=== PATIENT | female | born 1930 | race Caucasian/White ===

== ENCOUNTER 2016-11-20 03:10 | Inpatient (IN) | payer OTHER, MEDICARE ==
[2016-11-20] VITALS (13 sets, daily range): BP systolic 116–165; BP diastolic 62–89; PULSE 59–71; RESP 16–18; TEMP 97.4–98.6; O2SAT 93–99
[2016-11-20] MEDS ORDERED: LEVO75TA3 PO (03:32)
[2016-11-20] MEDS ORDERED: CLOP75TA PO (03:32)
[2016-11-20] MEDS ORDERED: LOTR5CAP (03:32)
--- NOTE | 2016-11-20 04:23 | PD ---
HPI Chief Complaint: Chest Pain Time Seen by Provider: 04:04 Travel History International Travel<30 days: No Contact w/Intl Traveler<30days: No Traveled to known affect area: No History of Present Illness HPI 86-year-old female complains of chest pain. Patient states that the pain started about 1-1/2 hours prior coming to the emergency room. Patient states the pain is pressure across the anterior chest wall. Patient denies any pain radiation. Patient denies palpitation nausea vomiting diaphoresis. Patient denies any coughing congestion fever chills. EMS was called. Patient was given aspirin 81 mg 2 and nitroglycerin sublingually. Patient states that the chest pain resolved subsequently. Patient denies any headache. Patient denies any shortness of breath. Patient denies abdominal pain. Patient denies any focal weakness or numbness of extremity. Patient denies any chest pain now. Patient has history hypertension. Patient denies history diabetes or hyperlipidemia. Patient is a nonsmoker. Patient has family history of heart disease. Patient states that she has been doing a lot of heavy lifting recently. Patient has history of peripheral vascular disease with stent placement on the left leg. Patient was on Plavix until about 3 weeks ago when she stopped taking them secondary to skin bruising. PFSH Past Medical History Diminished Hearing: No Hypertension: Yes Thyroid Disease: Yes Past Surgical History Cholecystectomy: Yes Other Surgery: Yes (STENT IN L LEG) Social History Alcohol Use: No (OCCASIONALLY ) Tobacco Use: No Substance Use: No Allergies-Medications (Allergen,Severity, Reaction): Coded Allergies: No Known Allergies (Unverified , 11/20/16) Reported Meds & Prescriptions Reported Meds & Active Scripts Active Reported Lotrel 5-40 mg Capsule (Amlodipine Besylate/Benazepril) 1 Each Capsule Levothyroxine (Levothyroxine Sodium) 75 Mcg Tab 75 Mcg PO DAILY Clopidogrel (Clopidogrel Bisulfate) 75 Mg Tab 75 Mg PO DAILY Review of Systems General / Constitutional: No: Fever Eyes: No: Visual changes HENT: No: Headaches Cardiovascular: Positive: Chest Pain or Discomfort Respiratory: No: Shortness of Breath Gastrointestinal: No: Abdominal Pain Genitourinary: No: Dysuria Musculoskeletal: No: Pain Skin: No Rash Neurologic: No: Weakness Psychiatric: No: Depression Endocrine: No: Polydipsia Hematologic/Lymphatic: No: Easy Bruising Physical Exam Narrative GENERAL: Well-nourished, well-developed patient. SKIN: Focused skin assessment warm/dry. HEAD: Normocephalic. EYES: No scleral icterus. No injection or drainage. NECK: Supple, trachea midline. No JVD or lymphadenopathy. CARDIOVASCULAR: Regular rate and rhythm without murmurs, gallops, or rubs. RESPIRATORY: Breath sounds equal bilaterally. No accessory muscle use. GASTROINTESTINAL: Abdomen soft, non-tender, nondistended. MUSCULOSKELETAL: No cyanosis, or edema. BACK: Nontender without obvious deformity. No CVA tenderness. Neurologic exam normal. Data Data Last Documented VS Vital Signs Date Time Temp Pulse Resp B/P (MAP) Pulse Ox O2 Delivery O2 Flow Rate FiO2 11/20/16 04:18 18 98 11/20/16 03:28 72 11/20/16 03:23 97.7 165/82 (109) Orders Orders Electrocardiogram (11/20/16 04:15) Complete Blood Count With Diff (11/20/16 04:15) Comprehensive Metabolic Panel (11/20/16 04:15) Creatine Kinase (Cpk) (11/20/16 04:15) Troponin I (11/20/16 04:15) Prothrombin Time / Inr (Pt) (11/20/16 04:15) Act Partial Throm Time (Ptt) (11/20/16 04:15) Urinalysis - C+S If Indicated (11/20/16 04:15) Chest, Single Ap (11/20/16 04:15) Iv Access Insert/Monitor (11/20/16 04:15) Ecg Monitoring (11/20/16 04:15) Oximetry (11/20/16 04:15) Nitroglycerin 2% Oint (Nitroglycerin 2% (11/20/16 04:30) Heparin Infusion DANN.Q1H (11/20/16 05:37) Heparin-D5w 25,000 U/250 Ml (Heparin-D5w (11/20/16 05:37) Cbc No Diff, Includes Plts (11/23/16 06:00) Consult Cardiology (11/20/16 ) Labs Laboratory Tests Test 11/20/16 04:25 11/20/16 04:40 White Blood Count 8.1 TH/MM3 Red Blood Count 4.26 MIL/MM3 Hemoglobin 14.1 GM/DL Hematocrit 41.1 % Mean Corpuscular Volume 96.6 FL Mean Corpuscular Hemoglobin 33.1 PG Mean Corpuscular Hemoglobin Concent 34.3 % Red Cell Distribution Width 13.0 % Platelet Count 213 TH/MM3 Mean Platelet Volume 8.2 FL Neutrophils (%) (Auto) 49.3 % Lymphocytes (%) (Auto) 32.0 % Monocytes (%) (Auto) 10.0 % Eosinophils (%) (Auto) 7.6 % Basophils (%) (Auto) 1.1 % Neutrophils # (Auto) 4.0 TH/MM3 Lymphocytes # (Auto) 2.6 TH/MM3 Monocytes # (Auto) 0.8 TH/MM3 Eosinophils # (Auto) 0.6 TH/MM3 Basophils # (Auto) 0.1 TH/MM3 CBC Comment DIFF FINAL Differential Comment Prothrombin Time 10.4 SEC Prothromb Time International Ratio 0.9 RATIO Activated Partial Thromboplast Time 27.0 SEC Blood Urea Nitrogen 12 MG/DL Creatinine 0.67 MG/DL Random Glucose 112 MG/DL Total Protein 7.1 GM/DL Albumin 3.4 GM/DL Calcium Level 8.3 MG/DL Alkaline Phosphatase 68 U/L Aspartate Amino Transf (AST/SGOT) 21 U/L Alanine Aminotransferase (ALT/SGPT) 25 U/L Total Bilirubin 0.8 MG/DL Sodium Level 142 MEQ/L Potassium Level 3.2 MEQ/L Chloride Level 105 MEQ/L Carbon Dioxide Level 26.9 MEQ/L Anion Gap 10 MEQ/L Estimat Glomerular Filtration Rate 84 ML/MIN Total Creatine Kinase 72 U/L Troponin I 0.16 NG/ML Urine Color LIGHT-YELLOW Urine Turbidity CLEAR Urine pH 7.5 Urine Specific [place] 1.005 Urine Protein NEG mg/dL Urine Glucose (UA) NEG mg/dL Urine Ketones NEG mg/dL Urine Occult Blood NEG Urine Nitrite NEG Urine Bilirubin NEG Urine Urobilinogen LESS THAN 2.0 MG/DL Urine Leukocyte Esterase TRACE Urine RBC LESS THAN 1 /hpf Urine WBC 1 /hpf Microscopic Urinalysis Comment CULT NOT INDICATED MDM Medical Decision Making Medical Screen Exam Complete: Yes Emergency Medical Condition: Yes Interpretation(s) EKG shows sinus rhythm with left bundle-branch block. 5:27 AM. Last Impressions Chest X-Ray 11/20/16 0415 Signed Impressions: Service Date/Time: Sunday, November 20, 2016 04:27 - CONCLUSION: Normal examination. Rey Salinas MD CBC within normal limit. Potassium 3.2. Troponin 0.16. UA is negative. Differential Diagnosis Differential diagnosis including angina, MA, PE, pneumothorax. Narrative Course 86-year-old female with chest pain. Chest pain relieved with aspirin and nitroglycerin. Nitro paste 1 inch on chest wall. I spoke with Dr. Mijares, cardiology on-call. Advise heparin drip. KCl 40 mEq by mouth given. Diagnosis Primary Impression: Non-STEMI (non-ST elevated myocardial infarction) Additional Impression: Hypokalemia Admitting Information Admitting Physician Requests: Admit Luigi Collins MD Nov 20, 2016 04:23
[2016-11-20] MEDS ORDERED: NITROGLYCERIN 2% OINT 1 GM PACKET TOPICAL ONE (04:30)
[2016-11-20 04:39] LABS: BASOPHIL # 0.1 TH/MM3 (0-0.2); BASOPHIL % 1.1 % (0.0-2.0); EOSINOPHIL # 0.6 TH/MM3 (0-0.4); EOSINOPHIL % 7.6 % (0.0-4.0); HEMATOCRIT 41.1 % (35.0-46.0); HEMO FLAGS DIFF FINAL; LYMPHOCYTE # 2.6 TH/MM3 (1.0-4.8); MEAN CELL VOLUME 96.6 FL (80.0-100.0); MEAN CORPUSCULAR HEMOGLOBIN 33.1 PG (27.0-34.0); MEAN CORPUSCULAR HGB CONC 34.3 % (32.0-36.0); NEUT % 49.3 % (16.0-70.0); PLATELET COUNT 213 TH/MM3 (150-450); RED BLOOD COUNT 4.26 MIL/MM3 (4.00-5.30); WHITE BLOOD COUNT 8.1 TH/MM3 (4.0-11.0)
--- NOTE | 2016-11-20 04:45 | RADRPT ---
EXAM DATE/TIME: 11/20/2016 04:27 [facility] COMPARISON: No previous studies available for comparison. INDICATIONS : Chest pain. MEDICAL HISTORY : Hyperthyroidism. Hypertension SURGICAL HISTORY : Cholecystectomy. ENCOUNTER: Initial ACUITY: 1 day PAIN SCORE: 5/10 LOCATION: Bilateral chest FINDINGS: A single view of the chest demonstrates the lungs to be symmetrically aerated without evidence of mas s, infiltrate or effusion. The cardiomediastinal contours are unremarkable. Osseous structures are intact. CONCLUSION: Normal examination. Rey Salinas MD on November 20, 2016 at 4:44 Board Certified Radiologist. This report was verified electronically.
[2016-11-20 04:59] LABS: ALT (GPT) 25 U/L (10-53); ANION GAP 10 MEQ/L (5-15); AST (GOT) 21 U/L (15-37); BICARBONATE 26.9 MEQ/L (21.0-32.0); BLOOD UREA NITROGEN 12 MG/DL (7-18); CHLORIDE 105 MEQ/L (98-107); GLOMERULAR FILTRATION RATE 84 ML/MIN (>89); INTERNATIONAL NORMALIZED RATIO 0.9 RATIO; POTASSIUM 3.2 MEQ/L (3.5-5.1); PROTHROMBIN TIME - PATIENT 10.4 SEC (9.8-11.6); SODIUM (NA) 142 MEQ/L (136-145)
[2016-11-20 05:03] LABS: ALKALINE PHOSPHATASE 68 U/L (45-117); TOTAL BILIRUBIN ADULT 0.8 MG/DL (0.2-1.0)
[2016-11-20 05:08] LABS: BLOOD, URINE NEG (NEG); COMMENT (UR) CULT NOT INDICATED; CULTURE IF INDICATED CULT NOT INDICATED; GLUCOSE,URINE NEG (NEG); KETONE, URINE NEG (NEG); NITRITE,URINE NEG (NEG); PH, URINE 7.5 (5.0-8.5); URINE COLOR LIGHT-YELLOW (YELLW/STRAW)
[2016-11-20 05:14] LABS: CREATINE KINASE 72 U/L (26-192)
[2016-11-20] MEDS ORDERED: ACETAMINOPHEN 325 MG TAB PO PRN (05:45)
[2016-11-20] MEDS ORDERED: LACTULOSE SYRUP 20 GM/30 ML CUP PO PRN (05:45)
[2016-11-20] MEDS ORDERED: NITROGLYCERIN 2% OINT 1 GM PACKET TOPICAL PRN (05:45)
[2016-11-20] MEDS ORDERED: MAGNESIUM HYDROXIDE SUSP 30 ML CUP PO PRN (05:45)
[2016-11-20] MEDS ORDERED: SENNOSIDES 8.6 MG TAB PO PRN (05:45)
[2016-11-20] MEDS ORDERED: SODIUM CHLORIDE 0.9% FLUSH 10 ML FLUSH IV FLUSH PRN (05:45)
[2016-11-20] MEDS ORDERED: BISACODYL 10 MG SUPP RECTAL PRN (05:45)
[2016-11-20] MEDS ORDERED: ONDANSETRON HCL 4 MG/2 ML VIAL IVP PRN (05:45)
[2016-11-20] MEDS ORDERED: POTASSIUM CHLORIDE 20 MEQ CONTROLLED RELEASE TAB PO ONE (05:45)
[2016-11-20] MEDS: SODIUM CHLOR 0.9% 1000 ML INJ 1,000 ML IV SCH ×2 (06:28→15:40)
[2016-11-20] MEDS: HEPARIN-D5W 25,000 U/250 ML 250 ML IV PRN (06:34)
[2016-11-20] MEDS: PRAVASTATIN SOD 40 MG TAB PO SCH (09:16)
[2016-11-20] MEDS: DOCUSATE SODIUM 50 MG/SENNA 8.6 MG TAB PO SCH ×2 (09:16→20:01)
[2016-11-20] MEDS: METOPROLOL TARTRATE 25 MG TAB PO SCH ×2 (09:16→20:01)
[2016-11-20] MEDS: SODIUM CHLORIDE 0.9% FLUSH 10 ML FLUSH IV FLUSH SCH ×2 (09:17→20:01)
--- NOTE | 2016-11-20 10:14 | HHI.HP ---
HPI Service [facility] Primary Care Physician Susan Harrell MD Admission Diagnosis NSTEMI. Hypokalemia. Diagnoses: Chief Complaint: chest pain Travel History International Travel<30 Days: No Contact w/Intl Traveler <30 Da: No Traveled to Known Affected Are: No History of Present Illness Written by Joy Harris, acting as scribe for Dr. Arias on 11/20/16 at 09: 50. 86-year-old female with history of hypertension, hypothyroidism, PAD s/p left leg stent, presents with acute onset of chest pain just prior to arrival. The patient reports around 2 AM this morning 11/20, she woke up to use the restroom, walked to the bathroom, and states she "just knew something was wrong". She laid back down in bed, and after about twenty minutes she developed chest pains. She locates the pain diffusely across the anterior chest without radiation, described as constant pressure, associated with shortness of breath but no diaphoresis or nausea/vomiting. She did not take anything for the pain. The chest pain failed to subside over an hour therefore she called 911. En route to the ED, EMS administered two baby aspirin and one nitroglycerin, and her chest pains subsided then resolved shortly after her arrival to the ED. The patient states she's had these chest pains a few times in the past but never this bad. She would usually take 2 aspirin, go to bed, and the pains would resolve. She denies any prior history of ID. She had an arterial stent placed in the left leg approximately [address] Higgins. She has been taking Plavix however had some dental work done 3 weeks ago, stopped her plavix, and hasn't restarted secondary to bruising. She admits she has been under more stress lately; her and her 90-year-old have been moving this week. She reports a strong family history of heart disease with both parents. The patient has no other medical complaints including no fevers/chills, cough, palpitations , abdominal pain, or urinary complaints. Review of Systems Except as stated in HPI: all other systems reviewed are Neg Past Family Social History Past Medical History Hypertension PAD Hypothyroidism Past Surgical History Cholecystectomy Left leg stent placement Hysterectomy Dental procedures Reported Medications Lotrel 5-40 mg Capsule (Amlodipine Besylate/Benazepril) 1 Each Capsule Levothyroxine (Levothyroxine Sodium) 75 Mcg Tab 75 Mcg PO DAILY Clopidogrel (Clopidogrel Bisulfate) 75 Mg Tab 75 Mg PO DAILY (stopped taking 3 weeks ago) Allergies: Coded Allergies: No Known Allergies (Unverified , 11/20/16) Active Ordered Medications Current Medications Medications (Trade) Dose Ordered Sig/Casa Route Start Time Stop Time Status Last Admin Heparin Sodium/ Dextrose 250 ml @ 0 mls/hr Q0M PRN IV 11/20/16 05:37 11/20/16 06:34 Sodium Chloride 1,000 ml @ 100 mls/hr Q10H IV 11/20/16 05:40 11/20/16 06:28 (NS Flush) 2 ml UNSCH PRN IV FLUSH 11/20/16 05:45 (NS Flush) 2 ml BID IV FLUSH 11/20/16 09:00 11/20/16 09:17 (Zofran Inj) 4 mg Q6H PRN IVP 11/20/16 05:45 (Tylenol) 650 mg Q6H PRN PO 11/20/16 05:45 ([place] 5-325 Mg) 1 tab Q4H PRN PO 11/20/16 05:45 (Morphine Inj) 2 mg Q3H PRN IV 11/20/16 05:45 (Meri-Colace) 1 tab BID PO 11/20/16 09:00 11/20/16 09:16 (Milk Of Magnesia Liq) 30 ml Q12H PRN PO 11/20/16 05:45 (Senokot) 17.2 mg Q12H PRN PO 11/20/16 05:45 (Dulcolax Supp) 10 mg DAILY PRN RECTAL 11/20/16 05:45 (Lactulose Liq) 30 ml DAILY PRN PO 11/20/16 05:45 (Nitroglycerin 2% Oint) 0.5 inch Q6H PRN TOPICAL 11/20/16 05:45 (Lopressor) 25 mg Q12HR PO 11/20/16 09:00 11/20/16 09:16 (Pravachol) 40 mg DAILY PO 11/20/16 09:00 11/20/16 09:16 Family History Mother with "a lot of heart problems", Father with heart disease, from ID Social History Quit smoking tobacco 30+ years ago Drinks 1 glass of wine nightly No illicit drug use Physical Exam Vital Signs Vital Signs Date Time Temp Pulse Resp B/P (MAP) Pulse Ox O2 Delivery O2 Flow Rate FiO2 11/20/16 07:10 11/20/16 06:00 67 18 127/71 (89) 97 11/20/16 04:18 18 98 11/20/16 03:28 72 18 99 11/20/16 03:23 97.7 68 16 165/82 (109) 99 Physical Exam GENERAL: Well-nourished, well-developed pleasant elderly female patient in [facility]. SKIN: Warm and dry. No rash. HEAD: Normocephalic. Atraumatic. EYES: Pupils equal and round. No scleral icterus. No injection or drainage. ENT: No nasal bleeding or discharge. Mucous membranes pink and moist. NECK: Supple. Trachea midline. CARDIOVASCULAR: Regular rate and rhythm. S1, S2 noted. No murmur appreciated. RESPIRATORY: No accessory muscle use. Clear to auscultation. Breath sounds equal bilaterally. GASTROINTESTINAL: Abdomen soft, non-tender, nondistended. Normoactive bowel sounds x4. MUSCULOSKELETAL: No obvious deformities. Extremities without clubbing, cyanosis , or edema. NEUROLOGICAL: Awake and alert. No obvious cranial nerve deficits. Motor grossly within normal limits. Moves all extremities spontaneously. Normal speech. PSYCHIATRIC: Appropriate mood and affect; insight and judgment normal. Laboratory Laboratory Tests Test 11/20/16 04:25 11/20/16 04:40 White Blood Count 8.1 Red Blood Count 4.26 Hemoglobin 14.1 Hematocrit 41.1 Mean Corpuscular Volume 96.6 Mean Corpuscular Hemoglobin 33.1 Mean Corpuscular Hemoglobin Concent 34.3 Red Cell Distribution Width 13.0 Platelet Count 213 Mean Platelet Volume 8.2 Neutrophils (%) (Auto) 49.3 Lymphocytes (%) (Auto) 32.0 Monocytes (%) (Auto) 10.0 Eosinophils (%) (Auto) 7.6 Basophils (%) (Auto) 1.1 Neutrophils # (Auto) 4.0 Lymphocytes # (Auto) 2.6 Monocytes # (Auto) 0.8 Eosinophils # (Auto) 0.6 Basophils # (Auto) 0.1 CBC Comment DIFF FINAL Differential Comment Prothrombin Time 10.4 Prothromb Time International Ratio 0.9 Activated Partial Thromboplast Time 27.0 Blood Urea Nitrogen 12 Creatinine 0.67 Random Glucose 112 Total Protein 7.1 Albumin 3.4 Calcium Level 8.3 Alkaline Phosphatase 68 Aspartate Amino Transf (AST/SGOT) 21 Alanine Aminotransferase (ALT/SGPT) 25 Total Bilirubin 0.8 Sodium Level 142 Potassium Level 3.2 Chloride Level 105 Carbon Dioxide Level 26.9 Anion Gap 10 Estimat Glomerular Filtration Rate 84 Total Creatine Kinase 72 Troponin I 0.16 Urine Color LIGHT-YELLOW Urine Turbidity CLEAR Urine pH 7.5 Urine Specific [place] 1.005 Urine Protein NEG Urine Glucose (UA) NEG Urine Ketones NEG Urine Occult Blood NEG Urine Nitrite NEG Urine Bilirubin NEG Urine Urobilinogen LESS THAN 2.0 Urine Leukocyte Esterase TRACE Urine RBC LESS THAN 1 Urine WBC 1 Microscopic Urinalysis Comment CULT NOT INDICATED Result Diagram: 11/20/165 11/20/16424 Imaging Last Impressions Chest X-Ray 11/20/16414 Signed Impressions: Service Date/Time: Tuesday, November 20, 2016 04:27 - CONCLUSION: Normal examination. MD Mauricio Bob VTE Risk Assessment Caprini VTE Risk Assessment: Mod/High Risk (score >= 2) Caprini Risk Assessment Model Point Value = 1 Point Value = 2 Point Value = 3 Point Value = 5 Age 41-60 Minor surgery BMI > 25 kg/m2 Swollen legs Varicose veins or History of unexplained or recurrent spontaneous Oral contraceptives or hormone replacement Sepsis (< 1 month) Serious lung disease, including pneumonia (< 1 month) Abnormal pulmonary function Acute myocardial infarction Congestive heart failure (< 1 month) History of inflammatory bowel disease Medical patient at bed rest Age 61-74 Arthroscopic surgery Major open surgery (> 45 min) Laparoscopic surgery (> 45 min) Malignancy Confined to bed (> 72 hours) Immobilizing plaster cast Central venous access Age >= 75 History of VTE Family history of VTE Factor V Leiden Prothrombin [id number] Lupus anticoagulant Anticardiolipin antibodies Elevated serum homocysteine Heparin-induced thrombocytopenia Other congenital or acquired thrombophilia Stroke (< 1 month) Elective arthroplasty Hip, pelvis, or leg fracture Acute spinal cord injury (< 1 month) Prophylaxis Regimen Total Risk Factor Score Risk Level Prophylaxis Regimen 0-1 Low Early ambulation 2 Moderate Order ONE of the following: *Sequential Compression Device (SCD) *Heparin 5000 units SQ BID 3-4 Higher Order ONE of the following medications: *Heparin 5000 units SQ TID *Enoxaparin/Lovenox 40 mg SQ daily (WT < 150 kg, CrCl > 30 mL/min) *Enoxaparin/Lovenox 30 mg SQ daily (WT < 150 kg, CrCl > 10-29 mL/min) *Enoxaparin/Lovenox 30 mg SQ BID (WT < 150 kg, CrCl > 30 mL/min) AND/OR *Sequential Compression Device (SCD) 5 or more Highest Order ONE of the following medications: *Heparin 5000 units SQ TID (Preferred with Epidurals) *Enoxaparin/Lovenox 40 mg SQ daily (WT < 150 kg, CrCl > 30 mL/min) *Enoxaparin/Lovenox 30 mg SQ daily (WT < 150 kg, CrCl > 10-29 mL/min) *Enoxaparin/Lovenox 30 mg SQ BID (WT < 150 kg, CrCl > 30 mL/min) AND *Sequential Compression Device (SCD) Assessment and Plan Problem List: (1) Non-STEMI (non-ST elevated myocardial infarction) ICD Code: I21.4 - Non-ST elevation (NSTEMI) myocardial infarction Status: Acute (2) Hypokalemia ICD Code: E87.6 - Hypokalemia Status: Acute Assessment and Plan 86-year-old female with history of hypertension, hypothyroidism, PAD s/p left leg stent, presents with acute onset of chest pain just prior to arrival. NSTEMI: Chest pain onset 2am 11/20. Initial troponin at 0425hrs 0.16. EKG reviewed, shows sinus rhythm with LBBB. Chest pains resolved after aspirin 162mg and nitro administered by EMS. CXR images reviewed, no acute findings. -Continue to trend serial cardiac enzymes and EKGs -Started on IV heparin drip, nitro paste, beta shanthi, statin, IV morphine prn -check lipid panel and HgbA1c -Monitor on telemetry -Consult cardiology Hypertension: chronic, BP elevated upon arrival likely secondary to pain -continue home meds Norvasc and benazepril (convert to lisinopril equivalent dosing) with hold parameters -monitor BP, adjust antihypertensives as needed Hypothyroidism: chronic -continue patient's levothyroxine PAD: s/p left leg stent. Patient stopped taking plavix 3 weeks ago due to bruising. Follows with Dr. Higgins, has an upcoming appt next week. -continue outpatient follow up -hold Plavix for now until cardiology evaluation Hypokalemia: K 3.3 -given KCl 40meq po x1 -repeat labs in the am DVT Prophylaxis: on Heparin drip This note was transcribed by abelardo [Joy Harris]. I, Dr. Karin Arias personally performed the history, physical exam, and medical decision making; and confirmed the accuracy of the information in the transcribed note. Authenticated by Dr. Karin Arias on 11/20/16 at 0955. Discussed Condition With Patient Physician Certification 2 Midnight Certification Type: Admission for Inpatient Services Order for Inpatient Services The services are ordered in accordance with Medicare regulations or non- Medicare payer requirements, as applicable. In the case of services not specified as inpatient-only, they are appropriately provided as inpatient services in accordance with the 2-midnight benchmark. Estimated LOS (days): 3 days is the estimated time the patient will need to remain in the hospital, assuming treatment plan goals are met and no additional complications. Post-Hospital Plan: Home Joy Harris PA-C Nov 20, 2016 10:14 Karin Arias MD Nov 20, 2016 10:48
[2016-11-20 11:10] LABS: LDL CHOLESTEROL 86 MG/DL (0-99)
--- NOTE | 2016-11-20 11:52 | PD.CONS ---
HPI Consult Requested By Primary Care Physician Susan Harrell MD History of Present Illness 86-year-old female with pmhx of hypertension, hypothyroidism, PAD s/p left leg stent, presents with acute onset of chest pain. She pain started at 2 AM. She describes it as constant pressure across the chest, associated with shortness of breath but no diaphoresis or nausea/vomiting. Pain was relieved by nitroglycerin. EKG LBBB ?new vs old. Review of Systems Consitutional: DENIES: Fatigue, Fever, Chills, Weight gain, Weight loss Eyes: DENIES: Amaurosis Fugax, Change in vision HEENT: DENIES: Lightheadedness, Change in hearing Cardiovascular: COMPLAINS OF: See HPI Gastrointestinal: DENIES: Nausea, Vomiting, Change in bowel habits, Reflux, Bloody stools, Melena Genitourinary: DENIES: Urinary incontinence, Difficulty voiding Integumentary: DENIES: Rash Neurologic: DENIES: Tingling or numbness, Memory problems, Poor Balance, Stroke symptoms Musculoskeletal: DENIES: Joint pain, Muscle pain, Limited range of motion, Back pain Psychiatric: DENIES: Anxiety, Depression, Sleep disturbances Hematologic: DENIES: Bruising tendencies, Bleeding tendencies Endocrine: DENIES: Weight gain, Weight loss, Thyroid disease Past Family Social History Allergies: Coded Allergies: No Known Allergies (Unverified , 11/20/16) Past Medical History Hypertension PAD Hypothyroidism Past Surgical History Cholecystectomy Left leg stent placement Hysterectomy Dental procedures Reported Medications Reported Meds & Active Scripts Active Reported Lotrel 5-40 mg Capsule (Amlodipine Besylate/Benazepril) 1 Each Capsule Levothyroxine (Levothyroxine Sodium) 75 Mcg Tab 75 Mcg PO DAILY Clopidogrel (Clopidogrel Bisulfate) 75 Mg Tab 75 Mg PO DAILY Active Ordered Medications Current Medications Medications (Trade) Dose Ordered Sig/Casa Route Start Time Stop Time Status Last Admin Heparin Sodium/ Dextrose 250 ml @ 0 mls/hr Q0M PRN IV 11/20/16 05:37 11/20/16 06:34 Sodium Chloride 1,000 ml @ 100 mls/hr Q10H IV 11/20/16 05:40 11/20/16 06:28 (NS Flush) 2 ml UNSCH PRN IV FLUSH 11/20/16 05:45 (NS Flush) 2 ml BID IV FLUSH 11/20/16 09:00 11/20/16 09:17 (Zofran Inj) 4 mg Q6H PRN IVP 11/20/16 05:45 (Tylenol) 650 mg Q6H PRN PO 11/20/16 05:45 ([place] 5-325 Mg) 1 tab Q4H PRN PO 11/20/16 05:45 (Morphine Inj) 2 mg Q3H PRN IV 11/20/16 05:45 (Meri-Colace) 1 tab BID PO 11/20/16 09:00 11/20/16 09:16 (Milk Of Magnesia Liq) 30 ml Q12H PRN PO 11/20/16 05:45 (Senokot) 17.2 mg Q12H PRN PO 11/20/16 05:45 (Dulcolax Supp) 10 mg DAILY PRN RECTAL 11/20/16 05:45 (Lactulose Liq) 30 ml DAILY PRN PO 11/20/16 05:45 (Nitroglycerin 2% Oint) 0.5 inch Q6H PRN TOPICAL 11/20/16 05:45 (Lopressor) 25 mg Q12HR PO 11/20/16 09:00 11/20/16 09:16 (Pravachol) 40 mg DAILY PO 11/20/16 09:00 11/20/16 09:16 (Norvasc) 5 mg DAILY PO 11/21/16 09:00 (Prinivil) 40 mg DAILY PO 11/21/16 09:00 (Synthroid) 75 mcg DAILY@0600 PO 11/21/16 06:00 Physical Exam Vital Signs Vital Signs Date Time Temp Pulse Resp B/P (MAP) Pulse Ox O2 Delivery O2 Flow Rate FiO2 11/20/16 07:26 97.5 70 18 154/89 (110) 97 11/20/16 07:10 11/20/16 06:00 67 18 127/71 (89) 97 11/20/16 04:18 18 98 11/20/16 03:28 72 18 99 11/20/16 03:23 97.7 68 16 165/82 (109) 99 Laboratory Laboratory Tests Test 11/20/16 04:25 11/20/16 04:40 White Blood Count 8.1 Red Blood Count 4.26 Hemoglobin 14.1 Hematocrit 41.1 Mean Corpuscular Volume 96.6 Mean Corpuscular Hemoglobin 33.1 Mean Corpuscular Hemoglobin Concent 34.3 Red Cell Distribution Width 13.0 Platelet Count 213 Mean Platelet Volume 8.2 Neutrophils (%) (Auto) 49.3 Lymphocytes (%) (Auto) 32.0 Monocytes (%) (Auto) 10.0 Eosinophils (%) (Auto) 7.6 Basophils (%) (Auto) 1.1 Neutrophils # (Auto) 4.0 Lymphocytes # (Auto) 2.6 Monocytes # (Auto) 0.8 Eosinophils # (Auto) 0.6 Basophils # (Auto) 0.1 CBC Comment DIFF FINAL Differential Comment Prothrombin Time 10.4 Prothromb Time International Ratio 0.9 Activated Partial Thromboplast Time 27.0 Blood Urea Nitrogen 12 Creatinine 0.67 Random Glucose 112 Total Protein 7.1 Albumin 3.4 Calcium Level 8.3 Alkaline Phosphatase 68 Aspartate Amino Transf (AST/SGOT) 21 Alanine Aminotransferase (ALT/SGPT) 25 Total Bilirubin 0.8 Sodium Level 142 Potassium Level 3.2 Chloride Level 105 Carbon Dioxide Level 26.9 Anion Gap 10 Estimat Glomerular Filtration Rate 84 Total Creatine Kinase 72 Troponin I 0.16 Triglycerides Level 94 Cholesterol Level 169 LDL Cholesterol 86 HDL Cholesterol 64.0 Cholesterol/HDL Ratio 2.64 Urine Color LIGHT-YELLOW Urine Turbidity CLEAR Urine pH 7.5 Urine Specific [place] 1.005 Urine Protein NEG Urine Glucose (UA) NEG Urine Ketones NEG Urine Occult Blood NEG Urine Nitrite NEG Urine Bilirubin NEG Urine Urobilinogen LESS THAN 2.0 Urine Leukocyte Esterase TRACE Urine RBC LESS THAN 1 Urine WBC 1 Microscopic Urinalysis Comment CULT NOT INDICATED Result Diagram: 11/20/1642411/20/16424 Imaging Last Impressions Chest X-Ray 11/20/16414 Signed Impressions: Service Date/Time: Sunday, November 20, 2016 04:27 - CONCLUSION: Normal examination. Rey Salinas MD Assessment and Plan Problem List: (1) Non-STEMI (non-ST elevated myocardial infarction) ICD Codes: I21.4 - Non-ST elevation (NSTEMI) myocardial infarction Status: Acute Plan: 86 y/o F admiited with ACS/NSTEMI. NUBIA risk score 4. [place] 0. Recommendations: 1. Cycle cardiac markers x3 2. Cont heparin drip 3. Cont ASA and Plavix 4. BB, ACEi as tolerated by BP an HR 5. Statin 6. 2Dechocardiogram 7. Possible LHC on Tuesday (2) Hypokalemia ICD Codes: E87.6 - Hypokalemia Status: Acute Mijares-Moi López MD Nov 20, 2016 11:52
[2016-11-20 12:03] LABS: APTT (PATIENT) 41.1 SEC (24.3-30.1)
[2016-11-20] MEDS: ASPIRIN EC 81 MG TABEC PO SCH (12:20)
[2016-11-20 13:28] LABS: HEMOGLOBIN A1a 0.9 %; HEMOGLOBIN A1b 0.8 %; HEMOGLOBIN Ao 85.8 %; HEMOGLOBIN F 0.9 %; HEMOGLOBIN P3 3.5 %
--- NOTE | 2016-11-20 15:50 | EKG ---
Date Performed: 11/20/2016 Time Performed: 03:13:22 PTAGE: 86 years EKG: Sinus rhythm LEFT BUNDLE BRANCH BLOCK ABNORMAL ECG NO PREVIOUS TRACING DOCTOR: Salima Benton Interpretating Date/Time 11/20/2016 15:49:05
[2016-11-20 18:48] LABS: APTT (PATIENT) 38.2 SEC (24.3-30.1)
[2016-11-21] VITALS (27 sets, daily range): BP systolic 115–144; BP diastolic 66–84; PULSE 52–77; RESP 16–18; TEMP 97.5–98.6; O2SAT 93–99
[2016-11-21 01:12] LABS: APTT (PATIENT) 50.2 SEC (24.3-30.1)
[2016-11-21] MEDS: SODIUM CHLOR 0.9% 1000 ML INJ 1,000 ML IV SCH ×3 (03:45→15:05)
[2016-11-21] MEDS: LEVOTHYROXINE SODIUM 75 MCG TAB PO SCH (05:36)
[2016-11-21 07:34] LABS: BASOPHIL # 0.1 TH/MM3 (0-0.2); BASOPHIL % 0.7 % (0.0-2.0); EOSINOPHIL # 0.4 TH/MM3 (0-0.4); EOSINOPHIL % 3.6 % (0.0-4.0); HEMATOCRIT 39.9 % (35.0-46.0); HEMO FLAGS DIFF FINAL; LYMPH % 25.3 % (9.0-44.0); LYMPHOCYTE # 2.9 TH/MM3 (1.0-4.8); MEAN CORPUSCULAR HGB CONC 34.1 % (32.0-36.0); NEUT % 61.4 % (16.0-70.0); PLATELET COUNT 195 TH/MM3 (150-450); RED BLOOD COUNT 4.12 MIL/MM3 (4.00-5.30); RED CELL DISTRIBUTION WIDTH 12.8 % (11.6-17.2); WHITE BLOOD COUNT 11.5 TH/MM3 (4.0-11.0)
[2016-11-21 07:48] LABS: ALT (GPT) 22 U/L (10-53); ANION GAP 10 MEQ/L (5-15); AST (GOT) 23 U/L (15-37); BICARBONATE 22.4 MEQ/L (21.0-32.0); BLOOD UREA NITROGEN 8 MG/DL (7-18); CHLORIDE 111 MEQ/L (98-107); GLOMERULAR FILTRATION RATE 91 ML/MIN (>89); POTASSIUM 3.4 MEQ/L (3.5-5.1); SODIUM (NA) 143 MEQ/L (136-145)
[2016-11-21 07:50] LABS: ALKALINE PHOSPHATASE 57 U/L (45-117); TOTAL BILIRUBIN ADULT 0.6 MG/DL (0.2-1.0)
[2016-11-21] MEDS: amLODIPine BESYLATE 5 MG TAB PO SCH (08:42)
[2016-11-21] MEDS: DOCUSATE SODIUM 50 MG/SENNA 8.6 MG TAB PO SCH ×2 (08:42→20:42)
[2016-11-21] MEDS: ASPIRIN EC 81 MG TABEC PO SCH (08:42)
[2016-11-21] MEDS: PRAVASTATIN SOD 40 MG TAB PO SCH (08:42)
[2016-11-21] MEDS: METOPROLOL TARTRATE 25 MG TAB PO SCH ×2 (08:42→20:42)
[2016-11-21] MEDS: LISINOPRIL 20 MG TAB PO SCH (08:43)
[2016-11-21] MEDS: SODIUM CHLORIDE 0.9% FLUSH 10 ML FLUSH IV FLUSH SCH ×2 (08:43→20:43)
[2016-11-21] MEDS ORDERED: POTASSIUM CHLORIDE 20 MEQ CONTROLLED RELEASE TAB PO ONE (08:45)
--- NOTE | 2016-11-21 09:33 | HHI.PR ---
Subjective Remarks Follow up for chest pain. The patient reports no further episodes of chest pain. She denies any shortness of breath, nausea/vomiting, abdominal pain, or diaphoresis. She feels back to her baseline. She has no other medical complaints at this time. Objective Vitals Vital Signs Date Time Temp Pulse Resp B/P (MAP) Pulse Ox O2 Delivery O2 Flow Rate FiO2 11/21/16 09:24 77 11/21/16 08:47 71 11/21/16 07:44 62 11/21/16 07:41 97.7 62 18 115/66 (82) 97 11/21/16 06:00 70 11/21/16 05:00 73 11/21/16 04:00 63 11/21/16 03:30 98.6 65 16 143/84 (103) 93 11/21/16 03:00 60 11/21/16 02:00 73 11/21/16 01:00 65 11/21/16 00:00 58 11/20/16 23:30 98.4 59 16 116/62 (80) 95 11/20/16 23:00 59 11/20/16 22:00 64 11/20/16 21:00 66 11/20/16 20:00 64 11/20/16 19:40 98.6 62 16 144/80 (101) 93 11/20/16 19:00 66 11/20/16 15:36 97.4 71 18 142/88 (106) 94 11/20/16 11:53 97.5 59 18 138/75 (96) 95 I/O 11/20/16 11/20/16 11/20/16 11/21/16 11/21/16 11/21/16 07:00 15:00 23:00 07:00 15:00 23:00 Intake Total 480 ml 1560 ml Output Total 1400 ml 650 ml Balance -920 ml 910 ml Intake Oral 480 ml 480 ml IV Total 1080 ml Output Urine Total 1400 ml 650 ml # Voids 1 # Bowel Movements 0 1 Result Diagram: 11/21/16 0635 11/21/16 0635 Imaging Last Impressions Chest X-Ray 11/20/16 0415 Signed Impressions: Service Date/Time: Sunday, November 20, 2016 04:27 - CONCLUSION: Normal examination. Rey Salinas MD Objective Remarks GENERAL: Well-nourished, well-developed pleasant elderly female patient in NAD. SKIN: Warm and dry. No rash. HEENT: Normocephalic. Atraumatic. Pupils equal and round. Mucous membranes pink and moist. CARDIOVASCULAR: Regular rate and rhythm. S1, S2 noted. No murmur appreciated. RESPIRATORY: No accessory muscle use. Clear to auscultation. Breath sounds equal bilaterally. GASTROINTESTINAL: Abdomen soft, non-tender, nondistended. Normoactive bowel sounds x4. MUSCULOSKELETAL: No obvious deformities. Extremities without clubbing, cyanosis , or edema. NEUROLOGICAL: Awake and alert. No obvious cranial nerve deficits. Motor grossly within normal limits. Moves all extremities spontaneously. Normal speech. PSYCHIATRIC: Appropriate mood and affect; insight and judgment normal. Medications and IVs Current Medications Medications (Trade) Dose Ordered Sig/Casa Route Start Time Stop Time Status Last Admin Heparin Sodium/ Dextrose 250 ml @ 0 mls/hr Q0M PRN IV 11/20/16 05:37 11/20/16 06:34 Sodium Chloride 1,000 ml @ 100 mls/hr Q10H IV 11/20/16 05:40 11/21/16 03:45 (NS Flush) 2 ml UNSCH PRN IV FLUSH 11/20/16 05:45 (NS Flush) 2 ml BID IV FLUSH 11/20/16 09:00 11/21/16 08:43 (Zofran Inj) 4 mg Q6H PRN IVP 11/20/16 05:45 (Tylenol) 650 mg Q6H PRN PO 11/20/16 05:45 ([place] 5-325 Mg) 1 tab Q4H PRN PO 11/20/16 05:45 (Morphine Inj) 2 mg Q3H PRN IV 11/20/16 05:45 (Meri-Colace) 1 tab BID PO 11/20/16 09:00 11/21/16 08:42 (Milk Of Magnesia Liq) 30 ml Q12H PRN PO 11/20/16 05:45 (Senokot) 17.2 mg Q12H PRN PO 11/20/16 05:45 (Dulcolax Supp) 10 mg DAILY PRN RECTAL 11/20/16 05:45 (Lactulose Liq) 30 ml DAILY PRN PO 11/20/16 05:45 (Nitroglycerin 2% Oint) 0.5 inch Q6H PRN TOPICAL 11/20/16 05:45 (Lopressor) 25 mg Q12HR PO 11/20/16 09:00 11/21/16 08:42 (Pravachol) 40 mg DAILY PO 11/20/16 09:00 11/21/16 08:42 (Norvasc) 5 mg DAILY PO 11/21/16 09:00 11/21/16 08:42 (Prinivil) 40 mg DAILY PO 11/21/16 09:00 11/21/16 08:43 (Synthroid) 75 mcg DAILY@0600 PO 11/21/16 06:00 11/21/16 05:36 (Ecotrin Ec) 81 mg DAILY PO 11/20/16 12:00 11/21/16 08:42 A/P Problem List: (1) Non-STEMI (non-ST elevated myocardial infarction) ICD Code: I21.4 - Non-ST elevation (NSTEMI) myocardial infarction Status: Acute (2) Hypokalemia ICD Code: E87.6 - Hypokalemia Status: Acute Assessment and Plan 86-year-old female with history of hypertension, hypothyroidism, PAD s/p left leg stent, presents with acute onset of chest pain just prior to arrival. NSTEMI: Chest pain onset 2am 11/20. Initial troponin at 0425hrs 0.16. EKG reviewed, shows sinus rhythm with LBBB. Chest pains resolved after aspirin 162mg and nitro administered by EMS. CXR images reviewed, no acute findings. -Trended serial cardiac enzymes 0.16 --> 1.91 --> 1.62, EKG with LBBB (no previous EKG to compare) -Continue on IV heparin drip, nitro paste, beta shanthi, statin, IV morphine prn -Lipid panel wnl and HgbA1c 5.6 -Monitor on telemetry -Consult cardiology, echocardiogram ordered, may proceed with [facility] tomorrow Hypertension: chronic, BP elevated upon arrival likely secondary to pain -continue home meds Norvasc and benazepril (convert to lisinopril equivalent dosing) with hold parameters -monitor BP, adjust antihypertensives as needed Hypothyroidism: chronic -continue patient's levothyroxine PAD: s/p left leg stent. Patient stopped taking plavix 3 weeks ago due to bruising. Follows with Dr. Higgins, has an upcoming appt next week. -continue outpatient follow up -hold Plavix for now until cardiology evaluation Hypokalemia: K 3.3 -given KCl 40meq po x1 -repeat labs with K 3.4, given additional KCl replacement -check mag DVT Prophylaxis: on Heparin drip Discharge Planning Await echocardiogram. Cardiology may proceed with [facility] tomorrow am. Await further recommendations. Joy Harris PA-C Nov 21, 2016 9:33 am
--- NOTE | 2016-11-21 12:53 | PD.CARD.PN ---
Subjective Subjective Remarks no CV complaints Objective Medications Current Medications Medications (Trade) Dose Ordered Sig/Casa Route Start Time Stop Time Status Last Admin Heparin Sodium/ Dextrose 250 ml @ 0 mls/hr Q0M PRN IV 11/20/16 05:37 11/20/16 06:34 Sodium Chloride 1,000 ml @ 100 mls/hr Q10H IV 11/20/16 05:40 11/21/16 11:40 (NS Flush) 2 ml UNSCH PRN IV FLUSH 11/20/16 05:45 (NS Flush) 2 ml BID IV FLUSH 11/20/16 09:00 11/21/16 08:43 (Zofran Inj) 4 mg Q6H PRN IVP 11/20/16 05:45 (Tylenol) 650 mg Q6H PRN PO 11/20/16 05:45 ([place] 5-325 Mg) 1 tab Q4H PRN PO 11/20/16 05:45 (Morphine Inj) 2 mg Q3H PRN IV 11/20/16 05:45 (Meri-Colace) 1 tab BID PO 11/20/16 09:00 11/21/16 08:42 (Milk Of Magnesia Liq) 30 ml Q12H PRN PO 11/20/16 05:45 (Senokot) 17.2 mg Q12H PRN PO 11/20/16 05:45 (Dulcolax Supp) 10 mg DAILY PRN RECTAL 11/20/16 05:45 (Lactulose Liq) 30 ml DAILY PRN PO 11/20/16 05:45 (Nitroglycerin 2% Oint) 0.5 inch Q6H PRN TOPICAL 11/20/16 05:45 (Lopressor) 25 mg Q12HR PO 11/20/16 09:00 11/21/16 08:42 (Pravachol) 40 mg DAILY PO 11/20/16 09:00 11/21/16 08:42 (Norvasc) 5 mg DAILY PO 11/21/16 09:00 11/21/16 08:42 (Prinivil) 40 mg DAILY PO 11/21/16 09:00 11/21/16 08:43 (Synthroid) 75 mcg DAILY@0600 PO 11/21/16 06:00 11/21/16 05:36 (Ecotrin Ec) 81 mg DAILY PO 11/20/16 12:00 11/21/16 08:42 Vital Signs / I&O Vital Signs Date Time Temp Pulse Resp B/P (MAP) Pulse Ox O2 Delivery O2 Flow Rate FiO2 11/21/16 12:08 54 11/21/16 11:53 56 11/21/16 11:53 97.8 56 18 121/68 (85) 99 11/21/16 10:38 68 11/21/16 09:24 77 11/21/16 08:47 71 11/21/16 07:44 62 11/21/16 07:41 97.7 62 18 115/66 (82) 97 11/21/16 06:00 70 11/21/16 05:00 73 11/21/16 04:00 63 11/21/16 03:30 98.6 65 16 143/84 (103) 93 11/21/16 03:00 60 11/21/16 02:00 73 11/21/16 01:00 65 11/21/16 00:00 58 11/20/16 23:30 98.4 59 16 116/62 (80) 95 11/20/16 23:00 59 11/20/16 22:00 64 11/20/16 21:00 66 11/20/16 20:00 64 11/20/16 19:40 98.6 62 16 144/80 (101) 93 11/20/16 19:00 66 11/20/16 15:36 97.4 71 18 142/88 (106) 94 I/O 11/20/16 11/20/16 11/20/16 11/21/16 11/21/16 11/21/16 07:00 15:00 23:00 07:00 15:00 23:00 Intake Total 480 ml 1560 ml Output Total 1400 ml 650 ml Balance -920 ml 910 ml Intake Oral 480 ml 480 ml IV Total 1080 ml Output Urine Total 1400 ml 650 ml # Voids 1 # Bowel Movements 0 1 Physical Exam GENERAL: Well-nourished, well-developed patient. SKIN: Warm and dry. HEAD: Normocephalic. EYES: No scleral icterus. No injection or drainage. NECK: Supple, trachea midline. No JVD or lymphadenopathy. CARDIOVASCULAR: Regular rate and rhythm without murmurs, gallops, or rubs. RESPIRATORY: Breath sounds equal bilaterally. No accessory muscle use. GASTROINTESTINAL: Abdomen soft, non-tender, nondistended. EXTREMITIES: No cyanosis, or edema. NEUROLOGICAL: Awake, alert, and oriented x 3. Non-focal. Laboratory Laboratory Tests Test 11/20/16 13:50 11/20/16 18:13 11/21/16 00:08 11/21/16 06:35 Troponin I 1.91 NG/ML 1.62 NG/ML Activated Partial Thromboplast Time 38.2 SEC 50.2 SEC White Blood Count 11.5 TH/MM3 Red Blood Count 4.12 MIL/MM3 Hemoglobin 13.6 GM/DL Hematocrit 39.9 % Mean Corpuscular Volume 97.0 FL Mean Corpuscular Hemoglobin 33.0 PG Mean Corpuscular Hemoglobin Concent 34.1 % Red Cell Distribution Width 12.8 % Platelet Count 195 TH/MM3 Mean Platelet Volume 9.3 FL Neutrophils (%) (Auto) 61.4 % Lymphocytes (%) (Auto) 25.3 % Monocytes (%) (Auto) 9.0 % Eosinophils (%) (Auto) 3.6 % Basophils (%) (Auto) 0.7 % Neutrophils # (Auto) 7.0 TH/MM3 Lymphocytes # (Auto) 2.9 TH/MM3 Monocytes # (Auto) 1.0 TH/MM3 Eosinophils # (Auto) 0.4 TH/MM3 Basophils # (Auto) 0.1 TH/MM3 CBC Comment DIFF FINAL Differential Comment Blood Urea Nitrogen 8 MG/DL Creatinine 0.62 MG/DL Random Glucose 97 MG/DL Total Protein 6.4 GM/DL Albumin 3.0 GM/DL Calcium Level 8.0 MG/DL Alkaline Phosphatase 57 U/L Aspartate Amino Transf (AST/SGOT) 23 U/L Alanine Aminotransferase (ALT/SGPT) 22 U/L Total Bilirubin 0.6 MG/DL Sodium Level 143 MEQ/L Potassium Level 3.4 MEQ/L Chloride Level 111 MEQ/L Carbon Dioxide Level 22.4 MEQ/L Anion Gap 10 MEQ/L Estimat Glomerular Filtration Rate 91 ML/MIN Magnesium Level 1.9 MG/DL Imaging Last Impressions Chest X-Ray 11/20/16 8658 Signed Impressions: Service Date/Time: Sunday, November 20, 2016 04:27 - CONCLUSION: Normal examination. Rey Salinas MD Assessment and Plan Problem List: (1) Non-STEMI (non-ST elevated myocardial infarction) ICD Codes: I21.4 - Non-ST elevation (NSTEMI) myocardial infarction Status: Acute Plan: Cont aggressive management for CAD LHC in AM Keep NPO aftermidnight Risk benefits of LHC +/- PCI including but not limited to neurovascular trauma, bleeding, CHARLETTE, CVA, emergent CABG and have been discuss with patient. She understand risk and is willing to proceed. (2) Hypokalemia ICD Codes: E87.6 - Hypokalemia Status: Acute Moi Rogers MD Nov 21, 2016 12:53
[2016-11-21 13:05] LABS: APTT (PATIENT) 60.6 SEC (24.3-30.1)
--- NOTE | 2016-11-21 15:07 | ECHRPT ---
Indication: CORONARY ATHEROSCLEROSIS CONCLUSIONS The left ventricular systolic function is severely reduced with an estimated ejection fraction in th e range of 30-35%. Apical hypokinesis Normal left ventricular size. Wall thickness is normal. Nonobstructive prominent basal hypertrophy is present consistent with sigmoid septum. Trace mitral valve regurgitation. Trace aortic valve regurgitation. Aortic valve sclerosis is present. There is severe tricuspid regurgitation. The estimated pulmonary arterial pressure is 51 mmHg. Trivial pulmonary valve regurgitation. BP: 115 / 66 HR: 82 Rhythm: Sinus MEASUREMENTS (Male / Female) Normal Values Technical Quality:Fair 2D ECHO LV Diastolic Diameter PLAX 3.1 cm 4.2 - 5.9 / 3.9 - 5.3 cm LV Systolic Diameter PLAX 2.4 cm IVS Diastolic Thickness 1.3 cm 0.6 - 1.0 / 0.6 - 0.9 cm LVPW Diastolic Thickness 0.9 cm 0.6 - 1.0 / 0.6 - 0.9 cm LV Relative Wall Thickness 0.7 RV Internal Dim ED PLAX 2.2 cm LVOT Diameter 1.9 cm LA Systolic Diameter LX 2.5 cm 3.0 - 4.0 / 2.7 - 3.8 cm LV Ejection Fraction MOD 4C 43.0 % LV Cardiac Index MOD 4C 1802.2 cm/minm LV Ejection Fraction 4C AL 43.3 % LV Cardiac Index 4C AL 1867.4 cm/minm M-MODE Aortic Root Diameter MM 3.1 cm AV Cusp Separation MM 1.7 cm DOPPLER AV Peak Velocity 147.0 cm/s AV Peak Gradient 8.6 mmHg LVOT Peak Velocity 79.8 cm/s LVOT Peak Gradient 2.5 mmHg AV Area Cont Eq pk 1.5 cm MV Area PHT 3.3 cm Mitral E Point Velocity 88.4 cm/s Mitral A Point Velocity 129.0 cm/s Mitral E to A Ratio 0.7 LV E' Septal Velocity 4.8 cm/s Mitral E to LV E' Septal Ratio 18.5 TR Peak Velocity 319.0 cm/s TR Peak Gradient 40.7 mmHg PV Peak Velocity 82.8 cm/s PV Peak Gradient 2.7 mmHg FINDINGS LEFT VENTRICLE The left ventricular systolic function is severely reduced with an estimated ejection fraction in th e range of 30-35%. Normal left ventricular size. Wall thickness is normal. Nonobstructive prominent basal hypertrophy is present consistent with sigmoid septum. RIGHT VENTRICLE Normal right ventricular size and systolic function. LEFT ATRIUM The left atrial size is normal. RIGHT ATRIUM The right atrial size is normal. ATRIAL SEPTUM Normal atrial septal thickness without atrial level shunting by limited color doppler interrogation. AORTA The aortic root and proximal ascending aorta are normal in size on limited imaging. MITRAL VALVE Trace mitral valve regurgitation. AORTIC VALVE Trace aortic valve regurgitation. Aortic valve sclerosis is present. TRICUSPID VALVE There is severe tricuspid regurgitation. The estimated pulmonary arterial pressure is 51 mmHg. PULMONARY VALVE Trivial pulmonary valve regurgitation. VESSELS The inferior vena cava is normal in size. PERICARDIUM No pericardial effusion. Moi Rogers MD (Electronically Signed) Final Date:21 November 2016 15:07
[2016-11-21] MEDS: HEPARIN-D5W 25,000 U/250 ML 250 ML IV PRN (15:12)
[2016-11-22] VITALS (22 sets, daily range): BP systolic 90–154; BP diastolic 46–90; PULSE 46–78; RESP 12–16; TEMP 95.6–99; O2SAT 94–98
[2016-11-22] MEDS: SODIUM CHLOR 0.9% 1000 ML INJ 1,000 ML IV SCH ×4 (01:50→22:15)
[2016-11-22] MEDS: LEVOTHYROXINE SODIUM 75 MCG TAB PO SCH (05:39)
[2016-11-22 06:48] LABS: APTT (PATIENT) 64.8 SEC (24.3-30.1)
[2016-11-22] MEDS ORDERED: HEPARIN SODIUM - IV 10,000 UNITS/10 ML VIAL ONE (08:34)
[2016-11-22] MEDS ORDERED: HEPARIN-NS/PF INJ 1,000 ML ONE (08:34)
[2016-11-22] MEDS ORDERED: VERAPAMIL HCL 5 MG/2 ML VIAL ONE (08:34)
[2016-11-22] MEDS ORDERED: MIDAZOLAM HCL 2 MG/2 ML VIAL ONE ×2 (08:35→09:58)
[2016-11-22] MEDS ORDERED: NITROGLYCERIN INJ 5 ML ONE ×2 (08:35→12:17)
[2016-11-22] MEDS: LISINOPRIL 20 MG TAB PO SCH (09:00)
[2016-11-22] MEDS: ASPIRIN EC 81 MG TABEC PO SCH (09:00)
[2016-11-22] MEDS: METOPROLOL TARTRATE 25 MG TAB PO SCH (09:00)
[2016-11-22] MEDS: amLODIPine BESYLATE 5 MG TAB PO SCH (09:00)
[2016-11-22] MEDS: DOCUSATE SODIUM 50 MG/SENNA 8.6 MG TAB PO SCH ×2 (09:00→21:00)
[2016-11-22] MEDS: PRAVASTATIN SOD 40 MG TAB PO SCH (09:00)
[2016-11-22] MEDS ORDERED: MORPHINE SULFATE 8 MG/ML INJ ONE ×2 (10:15→11:22)
[2016-11-22] MEDS ORDERED: NITROGLYCERIN 400 MCG/SPRAY 4.9 GM BOTTLE SL ONE (10:18)
[2016-11-22] MEDS ORDERED: HEPARIN-D5W 25,000 U/250 ML 250 ML ONE (10:29)
[2016-11-22] MEDS ORDERED: PHENYLEPH/NS 1000 MCG/10 ML SYR ONE (10:31)
[2016-11-22] MEDS ORDERED: NOREPINEPHRINE 4 MG/4 ML AMP ONE (10:32)
[2016-11-22] MEDS ORDERED: HEPARIN-NS/PF INJ 500 ML ONE ×2 (10:47→11:10)
[2016-11-22] MEDS ORDERED: FLUMAZENIL 1 MG/10 ML VIAL ONE (11:41)
[2016-11-22] MEDS ORDERED: ATROPINE SULFATE 1 MG/10 ML SYRINGE ONE (11:41)
[2016-11-22] MEDS ORDERED: CLOPIDOGREL 300 MG TAB ONE (12:17)
[2016-11-22] MEDS ORDERED: FUROSEMIDE 40 MG/4 ML VIAL ONE (12:19)
[2016-11-22] MEDS ORDERED: TIROFIBAN INFUSION INJ 250 ML IV ONE (12:21)
[2016-11-22] MEDS ORDERED: FUROSEMIDE 40 MG/4 ML VIAL IV PUSH ONE (12:25)
--- NOTE | 2016-11-22 13:23 | MA ---
cc: LYLA TONEY DATE OF 1930 DATE OF PROCEDURE November 22, 2016 PROCEDURE PERFORMED 1. Left heart catheterization. 2. Selective right and left coronary angiography. 3. Left ventriculogram. 4. PCI/bare metal stent to left circumflex. 5. Intraaortic balloon pump insertion. INDICATION [id number] with ongoing chest pain. Patient decline CABG. PROCEDURE DESCRIPTION Consent signed. The patient was brought into the cardiac laboratory apparatus glass grinder in a fasting state. The right groin was prepped and draped in sterile fashion using 1% lidocaine for local anesthesia and a micropuncture kit. A 5-Tanzanian sheath was inserted into the right common femoral artery. Right common femoral artery angiography was performed to confirm position of the sheath. Then selective right and left coronary angiography was performed with JR-4 and JL-4 diagnostic catheters. Angiography was taken in multiple views. The JR-4 diagnostic catheter was introduced to the ventricle over a wire. This was followed by pressure recordings of left ventriculogram and on pullback. We identified severe two-vessel disease. The patient had a [employer] of the right coronary artery which is filling from the left coronary artery and it had significant calcified lesions on the left circumflex artery, type C lesions of 80 and 90%. The lesions is amenable to PCI, however high risk characteristics given heavy calcium present. The 5-Tanzanian groin sheath was exchanged for a 6-Tanzanian sheath. Heparin was given for anticoagulation. An EBU 35 wire was used to engage the left main. Then Run-Through wire was used to cross the left circumflex. The left circumflex had plenty of tortuosity and calcification, thus it was very difficult to position the wire distally. We were able to position the wire distally and then dilate the proximal right left coronary artery with a 2.5 x 12 balloon dog bone. The patient started moving on the table, moving her feet and arms and due to her movement we left position of the wire. On the next angiography there was a dissection of the mid segment of the vessel with associated ST elevations. Patient remained hemodynamically stable. IABP place thru the left groin. For this we used a micropuncture to engage the left common femoral artery. Then we introduced the intraaortic balloon sheath, an 8-Tanzanian sheath, then the intraaortic balloon was put into the descending aorta over a wire. Case discussed with CT surgery. Then the LM was engaged with AL 0.75 guide. This was followed by wiring the vessel with an over the wire balloon and the wire which was then anchored distally and then exchanged for a Whisper wire. After confirmation of through vessel with angiography through an over the wire balloon, then we were able to deploy three bare metal stents in the proximal and distal circ. In the proximal circ with a 2.75x 12mm bare metal stents in the mid-circumflex with a 2.5/12 bare metal stent on the distal circumflex, a 2.5/14 bare metal stent. There was slow reflow after the intervention for which nitroglycerin/adenosine was given intracoronary with some results. The patient was continue on heparin, started on Aggrastat and loaded with Plavix after the procedure. The patient currently remains stable with a blood pressure of 146/77 with mean of 83 and a heart rate of 88. She is alert, awake and oriented with no complaints. ANGIOGRAPHIC RESULTS LEFT VENTRICLE Left ventricular pressure was 146/17 with an LVEDP of 26. The aortic pressure was 145/63 with a mean of 93. ANGIOGRAPHIC RESULTS 1. The right coronary artery is a dominant vessel. It is calcified, has a total chronic occlusion in the mid-segment and is filling via collaterals coming from the left system. 2. The left main is long and patent, it bifurcates into the LAD and LCx 3. The LAD is a transapical vessel. It has minimal luminal irregularities, a 10 % lesion right at the takeoff of the S1 and is tortuous, filling by one diagonal which bifurcates and this diagonal has a distal lesion of about a 70%. However, this segment of the diagonal is small and not amendable to intervention. The LAD is giving off collaterals to the right coronary artery to exclude its septals. 4. The left circumflex artery is really tortuous vessel with a moderate degree of calcification. He had an 80% lesion distally. CONCLUSION 1. Successful PCI to the left circumflex artery in the setting of Non-STEMI. 2. Cardiogenic shock 3. Successful intra-aortic balloon pump insertion 4. LV systolic dysfunction. 5. Elevated LVEDP. RECOMMENDATIONS Patient will be admitted to the [facility]. The intraaortic balloon pump will continue for the next 24 hours. She will continue heparin, Integrilin and Plavix for the time being. Follow aggressive medical management for secondary prevention of coronary artery disease as tolerated. MD RANJITH Koch/SHAMA /12:31 PM /12:52 PM SAMEER
[2016-11-22] MEDS ORDERED: CLOPIDOGREL 300 MG TAB PO ONE (14:15)
[2016-11-22] MEDS ORDERED: TIROFIBAN INFUSION INJ 250 ML IV SCH (14:15)
[2016-11-22] MEDS ORDERED: ACETAMINOPHEN 1000 MG/100 ML VIAL IV PRN (14:30)
[2016-11-22 15:24] LABS: BLOOD, URINE NEG (NEG); COMMENT (UR) CATH-CULT NOT IND; CULTURE IF INDICATED CATH CULTURE NOT IND; GLUCOSE,URINE NEG (NEG); KETONE, URINE NEG (NEG); NITRITE,URINE NEG (NEG); URINE COLOR LIGHT-YELLOW (YELLW/STRAW)
--- NOTE | 2016-11-22 15:40 | EKG ---
Date Performed: 11/22/2016 Time Performed: 10:24:20 PTAGE: 86 years EKG: CONSIDER ACUTE ST ELEVATION ME Sinus bradycardia. Left bundle branch block Inferior ST elevation, CONSIDER ACUTE INFARCT Marked precordial ST depression, CONSIDER ACUTE INFARCT Anteros eptal ST-T changes suggest myocardial injury/ischemia Abnormal ECG Compared to PREVIOUS TRACING , marked ST changes consistent with an acute infarction are new. Clinica l correlation is required. PREVIOUS TRACIN11/20/2016 03.13 DOCTOR: Tyree Pillai Interpretating Date/Time 11/22/2016 15:39:55
--- NOTE | 2016-11-22 15:46 | HHI.PR ---
Subjective Remarks Patient seen after heart catheterization. She underwent PCI to the left circumflex. This was complicated by left circumflex artery dissection and she went into cardiogenic shock requiring intra-aortic balloon pump. Currently BP is maintaining. She is drowsy but easily awoken. States she has some discomfort when she moves. Otherwise no other complaints. Objective Vitals Vital Signs Date Time Temp Pulse Resp B/P (MAP) Pulse Ox O2 Delivery O2 Flow Rate FiO2 11/22/16 15:25 96.8 69 12 154/90 (111) 97 11/22/16 15:25 96/50 11/22/16 14:34 96.2 11/22/16 14:02 95.6 77 12 90/48 (62) 94 11/22/16 14:02 94/49 (159) 11/22/16 13:35 92 Nasal Cannula 10.00 11/22/16 13:35 78 11/22/16 13:03 110/60 (129) 11/22/16 13:00 95.6 11/22/16 13:00 94 Simple Mask 10.00 11/22/16 08:00 54 11/22/16 07:30 58 15 144/81 (102) 95 11/22/16 07:00 55 11/22/16 06:00 47 11/22/16 05:00 51 11/22/16 04:00 56 11/22/16 03:40 98.5 55 16 129/60 (83) 94 11/22/16 03:00 46 11/22/16 02:00 56 11/22/16 01:00 58 11/22/16 00:00 56 11/21/16 23:00 57 11/21/16 23:00 97.6 63 16 144/75 (98) 93 11/21/16 22:00 56 11/21/16 21:00 64 11/21/16 20:00 72 11/21/16 19:30 97.5 68 16 137/72 (93) 98 11/21/16 19:00 66 11/21/16 18:11 57 11/21/16 17:29 64 11/21/16 16:20 62 11/21/16 15:54 52 11/21/16 15:54 97.8 52 18 131/68 (89) 95 I/O 8/27/17 811/21/16 11/22/16 11/22/16 11/22/16 07:00 15:00 23:00 07:00 15:00 23:00 Intake Total 1560 ml 720 ml 1560 ml 100 ml Output Total 650 ml 850 ml 1100 ml Balance 910 ml -130 ml 460 ml 100 ml Intake Oral 480 ml 720 ml 480 ml IV Total 1080 ml 1080 ml 100 ml Output Urine Total 650 ml 850 ml 1100 ml # Voids 1 1 # Bowel Movements 1 1 0 Result Diagram: 11/21/16 0635 11/21/16 0635 Imaging Last Impressions Chest X-Ray 11/20/16 0415 Signed Impressions: Service Date/Time: Sunday, November 20, 2016 04:27 - CONCLUSION: Normal examination. Rey Salinas MD Objective Remarks GENERAL: Drowsy in no acute distress. SKIN: Warm and dry. No rash. HEENT: Normocephalic. Atraumatic. Pupils equal and round. Mucous membranes pink and moist. CARDIOVASCULAR: Regular rate and rhythm. S1, S2 noted. RESPIRATORY: No accessory muscle use. Clear to auscultation. Breath sounds equal bilaterally. GASTROINTESTINAL: Abdomen soft, non-tender, nondistended. Normoactive bowel sounds x4. MUSCULOSKELETAL: No obvious deformities. Extremities without clubbing, cyanosis , or edema. NEUROLOGICAL: Awake and alert. No obvious cranial nerve deficits. A/P Problem List: (1) Non-STEMI (non-ST elevated myocardial infarction) ICD Code: I21.4 - Non-ST elevation (NSTEMI) myocardial infarction Status: Acute (2) Hypokalemia ICD Code: E87.6 - Hypokalemia Status: Acute Assessment and Plan 86-year-old female with history of hypertension, hypothyroidism, PAD s/p left leg stent admitted with NSTEMI. Patient is s/p heart catheterization and PCI of left circumflex, complicated by circumflex artery dissection and cardiogenic shock NSTEMI/cardiogenic shock: status post heart catheterization and PCI of the left circumflex, currently on intraaortic balloon pump for cardiogenic shock. - Cardiology following closely. Continue support with intra-aortic balloon pump. Currently not requiring pressors. - On heparin. - Pain control - If Cardiogenic shock persist or get worse, would transfer care to [facility]. Further plan per Cardiology. Hypertension: chronic, BP elevated upon arrival likely secondary to pain -Hold antihypertensive for now 2/2 above. -monitor BP Hypothyroidism: chronic -continue patient's levothyroxine PAD: s/p left leg stent. Patient stopped taking Plavix 3 weeks ago due to bruising. Follows with Dr. Higgins, has an upcoming appt next week. -continue outpatient follow up -see above Urinary retention postop: Likely secondary to anesthesia. A costa has been placed. DVT Prophylaxis: on Heparin drip Discharge Planning Patient is critically ill. Keep in ICU. Karin Arias MD Nov 22, 2016 15:46
[2016-11-22] MEDS ORDERED: SODIUM CHLOR 0.9% 1000 ML INJ 1,000 ML IV SCH (16:53)
[2016-11-22] MEDS ORDERED: MISC INFORMATION XX ONE (17:00)
[2016-11-22] MEDS ORDERED: ATROPINE SULFATE 1 MG/ML VIAL IV PRN (17:00)
[2016-11-22] MEDS: ACETAMINOPHEN/HYDROcodone 325 MG/5 MG TAB PO PRN ×2 (17:06→23:11)
[2016-11-22] MEDS: ASPIRIN 81 MG CHEW TAB PO SCH (18:15)
[2016-11-22 19:49] LABS: AUTOMATED NEUTROPHIL # 15.8 TH/MM3 (1.8-7.7); BASOPHIL % 0.2 % (0.0-2.0); EOSINOPHIL % 0.1 % (0.0-4.0); HEMATOCRIT 40.3 % (35.0-46.0); HEMO FLAGS DIFF FINAL; LYMPH % 6.7 % (9.0-44.0); LYMPHOCYTE # 1.2 TH/MM3 (1.0-4.8); MEAN CELL VOLUME 97.7 FL (80.0-100.0); MEAN CORPUSCULAR HEMOGLOBIN 32.5 PG (27.0-34.0); MEAN CORPUSCULAR HGB CONC 33.2 % (32.0-36.0); MONO % 6.6 % (0.0-8.0); NEUT % 86.4 % (16.0-70.0); PLATELET COUNT 213 TH/MM3 (150-450); RED BLOOD COUNT 4.13 MIL/MM3 (4.00-5.30); RED CELL DISTRIBUTION WIDTH 13.4 % (11.6-17.2); WHITE BLOOD COUNT 18.2 TH/MM3 (4.0-11.0)
[2016-11-22 20:26] LABS: APTT (PATIENT) 234.1 SEC (24.3-30.1)
[2016-11-22] MEDS: ONDANSETRON HCL 4 MG/2 ML VIAL IV PRN (20:33)
--- NOTE | 2016-11-22 21:13 | PD.CONS ---
[facility] Service Critical Care Medicine Consult Requested By Primary Care Physician Susan Harrell MD History of Present Illness 86-year-old female with history of hypertension, hypothyroidism, PAD s/p left leg stent, presents with acute onset of chest pain just prior to arrival. She has been taking Plavix however had some dental work done 3 weeks ago, stopped her plavix, and hasn't restarted secondary to bruising. She admits she has been under more stress lately; her and her 90-year-old have been moving this week. She admits a strong family history of heart disease with both parents. She was taken emergently to cardiac catheterization lab where successful PCI to the left circumflex artery in the setting of Non-STEMI was done. Non-STEMI is complicated with left circumflex artery dissection and cardiogenic shock requiring the patient has been placed on IABP by centrifuge separator operator. Review of Systems Constitutional: DENIES: Diaphoretic episodes, Fatigue, Fever, Weight gain, Weight loss, Chills, Dizziness, Change in appetite, Night Sweats Endocrine: DENIES: Abnorml menstrual pattern, Heat/cold intolerance, Polydipsia , Polyuria, Polyphagia Eyes: DENIES: Blurred vision, Diplopia, Eye inflammation, Eye pain, Vision loss , Photosensitivity, Double Vision Ears, nose, mouth, throat: DENIES: Tinnitus, Hearing loss, Vertigo, Nasal discharge, Oral lesions, Throat pain, Hoarseness, Ear Pain, Running Nose, Epistaxis, Sinus Pain, Toothache, Odynophagia Respiratory: COMPLAINS OF: Shortness of breath, DENIES: Apneas, Cough, Snoring , Wheezing, Hemoptysis, Sputum production Cardiovascular: COMPLAINS OF: Chest pain, Dyspnea on Exertion, DENIES: Palpitations, Syncope, PND, Lower Extremity Edema, Orthopnea, Claudication Gastrointestinal: DENIES: Abdominal pain, Black stools, Bloody stools, Constipation, Diarrhea, Nausea, Vomiting, Difficulty Swallowing, Anorexia Genitourinary: DENIES: Abnormal vaginal bleeding, Dysmenorrhea, Dyspareunia, Sexual dysfunction, Urinary frequency, Urinary incontinence, Urgency, Hematuria , Dysuria, Nocturia, Vaginal discharge Musculoskeletal: DENIES: Joint pain, Muscle aches, Stiffness, Joint Swelling, Back pain, Neck pain Integumentary: DENIES: Abnormal pigmentation, Pruritus, Rash, Nail changes, Breast masses, Breast skin changes, Nipple discharge Hematologic/lymphatic: DENIES: Bruising, Lymphadenopathy Immunologic/allergic: DENIES: Eczema, Urticaria Neurologic: DENIES: Abnormal gait, Headache, Localized weakness, Paresthesias, Seizures, Speech Problems, Tremor, Poor Balance Psychiatric: DENIES: Anxiety, Confusion, Mood changes, Depression, Hallucinations, Agitation, Suicidal Ideation, Homicidal Ideation, Delusions Past Family Social History Allergies: Coded Allergies: No Known Allergies (Unverified , 11/20/16) Past Medical History Hypertension PAD Hypothyroidism Past Surgical History Cholecystectomy Left leg stent placement Hysterectomy Dental procedures Reported Medications Reported Meds & Active Scripts Active Reported Lotrel 5-40 mg Capsule (Amlodipine Besylate/Benazepril) 1 Each Capsule Levothyroxine (Levothyroxine Sodium) 75 Mcg Tab 75 Mcg PO DAILY Clopidogrel (Clopidogrel Bisulfate) 75 Mg Tab 75 Mg PO DAILY Active Ordered Medications Current Medications Medications (Trade) Dose Ordered Sig/Casa Route PRN Reason Start Time Stop Time Status Last Admin Dose Admin Sodium Chloride 1,000 ml @ 100 mls/hr Q10H IV 11/20/16 05:40 11/22/16 01:50 Sodium Chloride (NS Flush) 2 ml UNSCH PRN IV FLUSH FLUSH AFTER USING IV ACCESS 11/20/16 05:45 Sodium Chloride (NS Flush) 2 ml BID IV FLUSH 11/20/16 09:00 11/22/16 21:18 Acetaminophen (Tylenol) 650 mg Q6H PRN PO FEVER/PAIN SCALE 1 TO 2 11/20/16 05:45 Acetaminophen/ Hydrocodone Bitart ([place] 5-325 Mg) 1 tab Q4H PRN PO PAIN SCALE 3 TO 5 11/20/16 05:45 11/22/16 23:11 Morphine Sulfate (Morphine Inj) 2 mg Q3H PRN IV Pain 6-10 11/20/16 05:45 11/22/16 22:58 Senna/Docusate Sodium (Meri-Colace) 1 tab BID PO 11/20/16 09:00 11/21/16 08:42 Magnesium Hydroxide (Milk Of Magnesia Liq) 30 ml Q12H PRN PO MILD - MODERATE CONSTIPATION 11/20/16 05:45 Sennosides (Senokot) 17.2 mg Q12H PRN PO MODERATE - SEVERE CONSTIPATION 11/20/16 05:45 Bisacodyl (Dulcolax Supp) 10 mg DAILY PRN RECTAL SEVERE CONSITIPATION 11/20/16 05:45 Lactulose (Lactulose Liq) 30 ml DAILY PRN PO SEVERE CONSITIPATION 11/20/16 05:45 Nitroglycerin (Nitroglycerin 2% Oint) 0.5 inch Q6H PRN TOPICAL CHEST PAIN 11/20/16 05:45 Metoprolol Tartrate (Lopressor) 25 mg Q12HR PO 11/20/16 09:00 Future Hold 11/21/16 20:42 Pravastatin Sodium (Pravachol) 40 mg DAILY PO 11/20/16 09:00 11/21/16 08:42 Amlodipine Besylate (Norvasc) 5 mg DAILY PO 11/21/16 09:00 Future Hold 11/21/16 08:42 Lisinopril (Prinivil) 40 mg DAILY PO 11/21/16 09:00 Future Hold 11/21/16 08:43 Levothyroxine Sodium (Synthroid) 75 mcg DAILY@0600 PO 11/21/16 06:00 11/22/16 05:39 Sodium Chloride 1,000 ml @ 125 mls/hr Q8H IV 11/22/16 14:15 11/22/16 14:25 Tirofiban/Sodium Chloride 250 ml @ 5 mls/hr Q24H IV 11/22/16 14:15 11/22/16 14:24 Acetaminophen (Ofirmev 1000 Mg/ 100 ml Inj) 1,000 mg Q6H PRN IV PAIN SCALE 1 TO 10 11/22/16 14:30 11/22/16 14:24 Aspirin (Aspirin Chew) 81 mg DAILY PO 11/22/16 18:15 Clopidogrel Bisulfate (Plavix) 75 mg DAILY PO 11/23/16 09:00 Atropine Sulfate (Atropine Inj) 0.5 mg UNSCH PRN IV VAGAL REPONSE 11/22/16 17:00 Ondansetron HCl (Zofran Inj) 4 mg Q4H PRN IV NAUSEA 11/22/16 17:00 11/22/16 20:33 Heparin Sodium/ Dextrose 250 ml @ 7 mls/hr TITRATE IV 11/22/16 22:30 11/22/16 22:51 Family History Family history positive for coronary artery disease and hypertension from both side Social History No history of tobacco alcohol or illicit drug abuse Physical Exam Vital Signs Vital Signs Date Time Temp Pulse Resp B/P (MAP) Pulse Ox O2 Delivery O2 Flow Rate FiO2 11/22/16 18:07 101/56 (109) 11/22/16 17:00 101/59 (105) 11/22/16 16:08 97/60 (115) 11/22/16 16:07 93 Nasal Cannula 6.00 11/22/16 16:07 71 11/22/16 15:25 96.8 69 12 154/90 (111) 97 11/22/16 15:25 96/50 11/22/16 14:34 96.2 11/22/16 14:02 95.6 77 12 90/48 (62) 94 11/22/16 14:02 94/49 (159) 11/22/16 13:35 92 Nasal Cannula 10.00 11/22/16 13:35 78 11/22/16 13:03 110/60 (129) 11/22/16 13:00 95.6 11/22/16 13:00 94 Simple Mask 10.00 11/22/16 08:00 54 11/22/16 07:30 58 15 144/81 (102) 95 11/22/16 07:00 55 11/22/16 06:00 47 11/22/16 05:00 51 11/22/16 04:00 56 11/22/16 03:40 98.5 55 16 129/60 (83) 94 11/22/16 03:00 46 11/22/16 02:00 56 11/22/16 01:00 58 11/22/16 00:00 56 11/21/16 23:00 57 11/21/16 23:00 97.6 63 16 144/75 (98) 93 11/21/16 22:00 56 Physical Exam GENERAL: Well-nourished, well-developed patient. SKIN: Warm and dry. HEAD: Normocephalic. EYES: No scleral icterus. No injection or drainage. NECK: Supple, trachea midline. No JVD or lymphadenopathy. CARDIOVASCULAR: Regular rate and rhythm without murmurs, gallops, or rubs. RESPIRATORY: Breath sounds equal bilaterally. No accessory muscle use. GASTROINTESTINAL: Abdomen soft, non-tender, nondistended. MUSCULOSKELETAL: No cyanosis, or edema. BACK: Nontender without obvious deformity. NEURO EXAM: GCS: M V E Mental Status: The patient is alert and oriented to person, place, and time with normal speech. Cranial Nerves: Visual acuity intact bilaterally. Visual trujillo normal in all quadrants. Pupils are round, reactive to light. Extraocular movements are intact without ptosis. Hearing is normal bilaterally. Voice is normal. Tongue protrudes midline and moves symmetrically. Reflexes: Biceps, patellar, and Achilles are 2/4 bilaterally. No clonus. Sensation: Sensation is intact bilaterally to pain and light touch. Two-point discrimination is intact. Motor: Good muscle tone. Strength is 5/5 bilaterally. Cerebellar: [id number] and [id number] test normal bilaterally. Laboratory Laboratory Tests Test 11/22/16 06:01 11/22/16 13:15 11/22/16 19:23 11/22/16 19:34 Activated Partial Thromboplast Time 64.8 234.1 Urine Color LIGHT-YELLOW Urine Turbidity CLEAR Urine pH 5.0 Urine Specific [place] 1.014 Urine Protein NEG Urine Glucose (UA) NEG Urine Ketones NEG Urine Occult Blood NEG Urine Nitrite NEG Urine Bilirubin NEG Urine Urobilinogen LESS THAN 2.0 Urine Leukocyte Esterase NEG Urine RBC LESS THAN 1 Microscopic Urinalysis Comment CATH-CULT NOT IND White Blood Count 18.2 Red Blood Count 4.13 Hemoglobin 13.4 Hematocrit 40.3 Mean Corpuscular Volume 97.7 Mean Corpuscular Hemoglobin 32.5 Mean Corpuscular Hemoglobin Concent 33.2 Red Cell Distribution Width 13.4 Platelet Count 213 Mean Platelet Volume 8.0 Neutrophils (%) (Auto) 86.4 Lymphocytes (%) (Auto) 6.7 Monocytes (%) (Auto) 6.6 Eosinophils (%) (Auto) 0.1 Basophils (%) (Auto) 0.2 Neutrophils # (Auto) 15.8 Lymphocytes # (Auto) 1.2 Monocytes # (Auto) 1.2 Eosinophils # (Auto) 0.0 Basophils # (Auto) 0.0 CBC Comment DIFF FINAL Differential Comment Result Diagram: 11/22/16 19211/21/16 0635 Imaging GENERAL: Well-nourished, well-developed patient. SKIN: Warm and dry. HEAD: Normocephalic. EYES: No scleral icterus. No injection or drainage. NECK: Supple, trachea midline. No JVD or lymphadenopathy. CARDIOVASCULAR: Regular rate and rhythm without murmurs, gallops, or rubs. RESPIRATORY: Breath sounds equal bilaterally. No accessory muscle use. GASTROINTESTINAL: Abdomen soft, non-tender, nondistended. MUSCULOSKELETAL: No cyanosis, or edema. BACK: Nontender without obvious deformity. NEURO EXAM: GCS: M 6 V5 E3 Mental Status: The patient is alert and oriented to person, place, and time with normal speech. Cranial Nerves: Pupils are round, reactive to light. Extraocular movements are intact without ptosis. Hearing is normal bilaterally. Voice is normal. Tongue protrudes midline and moves symmetrically. Reflexes: Biceps, patellar, and Achilles are 2/4 bilaterally. No clonus. Assessment and Plan Assessment and Plan NSTEMI: - Status post cardiac catheterization and intervention - continue heparin, Integrilin and Plavix - secondary prevention of coronary artery disease as tolerated - Further management by Dr. Mijares cardiology Cardiogenic shock - IABP 24 hours Peripheral artery disease - Resume Plavix Hypertension - Hold all antihypertensive meds in the setting of cardiogenic shock Hypothyroidism - levothyroxine DVT GI prophylaxis - Teds SCDs - Heparin drip - Heart healthy diet Critical Care: The total critical care time was 35 minutes. Time to perform other separately billable procedures was not included in the critical care time. Eddie Fitzpatrick MD Nov 22, 2016 21:13
[2016-11-22] MEDS: SODIUM CHLORIDE 0.9% FLUSH 10 ML FLUSH IV FLUSH SCH (21:18)
[2016-11-22] MEDS ORDERED: HEPARIN 25,000 UNITS-D5W 250 ML - PREMIX IV SCH (22:30)
[2016-11-22] MEDS: MORPHINE SULFATE 4 MG/ML INJ IV PRN (22:58)
[2016-11-23] VITALS (12 sets, daily range): BP systolic 91–140; BP diastolic 58–77; PULSE 79–104; RESP 15–18; TEMP 98.5–99.1; O2SAT 92–98
[2016-11-23 01:56] LABS: APTT (PATIENT) 34.6 SEC (24.3-30.1)
[2016-11-23] MEDS: MORPHINE SULFATE 4 MG/ML INJ IV PRN ×2 (02:03→06:57)
[2016-11-23] MEDS: SODIUM CHLOR 0.9% 1000 ML INJ 1,000 ML IV SCH ×6 (03:40→23:40)
[2016-11-23] MEDS: ONDANSETRON HCL 4 MG/2 ML VIAL IV PRN ×3 (03:55→13:07)
[2016-11-23] MEDS: ACETAMINOPHEN/HYDROcodone 325 MG/5 MG TAB PO PRN (03:58)
[2016-11-23 06:54] LABS: APTT (PATIENT) 44.2 SEC (24.3-30.1); AUTOMATED NEUTROPHIL # 14.2 TH/MM3 (1.8-7.7); BASOPHIL % 0.1 % (0.0-2.0); HEMO FLAGS DIFF FINAL; LYMPH % 8.3 % (9.0-44.0); LYMPHOCYTE # 1.4 TH/MM3 (1.0-4.8); MEAN CELL VOLUME 98.6 FL (80.0-100.0); MEAN CORPUSCULAR HEMOGLOBIN 33.1 PG (27.0-34.0); MEAN CORPUSCULAR HGB CONC 33.6 % (32.0-36.0); MONO % 9.4 % (0.0-8.0); NEUT % 82.2 % (16.0-70.0); PLATELET COUNT 204 TH/MM3 (150-450); RED BLOOD COUNT 3.75 MIL/MM3 (4.00-5.30); RED CELL DISTRIBUTION WIDTH 13.4 % (11.6-17.2); WHITE BLOOD COUNT 17.3 TH/MM3 (4.0-11.0)
[2016-11-23 07:31] LABS: BICARBONATE 19.4 MEQ/L (21.0-32.0); POTASSIUM 3.3 MEQ/L (3.5-5.1)
--- NOTE | 2016-11-23 09:11 | HHI.CCPN ---
Subjective Remarks/Hospital Course 86-year-old female with history of hypertension, hypothyroidism, PAD s/p left leg stent, presents with acute onset of chest pain just prior to arrival. She has been taking Plavix however had some dental work done 3 weeks ago, stopped her plavix, and hasn't restarted secondary to bruising. She admits she has been under more stress lately; her and her 90-year-old have been moving this week. She admits a strong family history of heart disease with both parents. She was taken emergently to cardiac catheterization lab where successful PCI to the left circumflex artery in the setting of Non-STEMI was done. Non-STEMI is complicated with left circumflex artery dissection and cardiogenic shock requiring the patient has been placed on IABP by el teacher. Subjective 11/23 - currently on 12 L simple mask. Saturations 90%. Episodes of nausea overnight. Currently afebrile. IABP removed from left side. Objective Vital Signs Date Time Temp Pulse Resp B/P (MAP) Pulse Ox O2 Delivery O2 Flow Rate FiO2 11/23/16 08:23 92 Simple Mask 10.00 11/23/16 08:00 98.8 90 16 103/69 (80) Arterial Line Intake and Output 11/23/16 11/23/16 11/24/16 08:00 16:00 00:00 Intake Total 1138 ml Output Total 900 ml Balance 238 ml Result Diagram: 11/23/16 0435 11/23/16 0435 Imaging Last Impressions Chest X-Ray 11/20/16 041 Signed Impressions: Service Date/Time: Sunday, November 20, 2016 04:27 - CONCLUSION: Normal examination. Rey Salinas MD Objective Remarks GENERAL: 86-year-old female, resting in bed on supplemental mask SKIN: Warm and dry. Left lower extremity is cool with palpable pulses. Prior Site of intra-aortic balloon pump is clean dry and intact without hematoma HEAD: Normocephalic. EYES: Pupils are reactive. No scleral icterus. No injection or drainage. NECK: Supple, trachea midline. No JVD or lymphadenopathy. CARDIOVASCULAR: RRR. S1, S2. No S4. RESPIRATORY: Breath sounds equal bilaterally. No accessory muscle use. GASTROINTESTINAL: Abdomen soft, non-tender, nondistended. Hypoactive bowel sounds are appreciated MUSCULOSKELETAL: No abuse deformities. NEURO: Cranial nerves II through XII grossly intact. Strength is equal and symmetric. Normal sensation. A/P Assessment and Plan Neuro/Psych: Acetaminophen for fever [place]/morphine for pain management CV: Cardiogenic shock Non-STEMI History of hypertension Severe TR. Pulmonary hypertension. Systolic heart failure likely acute 11/22 cardiac catheterization revealed left main patent. RCA total occlusion/ chronic with collaterals. Left circumflex 80% distal. PCI place. Complicated by dissection and placement IABP Intra-aortic balloon has been removed this AM. - continue heparin at 600 units an hour. Integrilin has been discontinued Patient is currently on aspirin 81 mg daily and clopidogrel 75 mg by mouth daily /home medications. Home medications for blush include amlodipine 5 mill grams daily and benazepril 40 mg by mouth daily. 2-D echo revealed EF 3035%. Apical hypokinesis. Severe TR. Pulmonary arterial pressures 51 mmHg Resp: Acute respiratory insufficiency Follow-up on chest x-ray. Possible aspiration Currently simple mask to maintain saturations greater than equal to 92% Incentive spirometry while awake. A cappella every 6 hours with albuterol aerosols. GI: Nausea/vomiting Check liver function tests/lipase/KUB. Zofran/Compazine for nausea. : Chacon catheter has been placed for accurate I's and O's in a critically ill patient. Remove when clinically indicated Endo: Hypothyroidism Currently on Levoxyl 75 g by mouth daily. Check TSH Renal: Creatinine currently within normal limits. Heme: Leukocytosis Likely reactive. Follow up CBC in AM. Monitor trends ID: Monitor for signs or symptoms of infection FEN: Hypokalemia Replace per ICU electrolyte protocol MSK: PT evaluate and treat Access - Utilize peripheral IV. Central line if indicated Prophylaxis - GI - not indicated - DVT - heparin drip Level III follow-up Sesar Field MD Nov 23, 2016 09:11
[2016-11-23] MEDS: DOCUSATE SODIUM 50 MG/SENNA 8.6 MG TAB PO SCH ×2 (09:18→21:25)
[2016-11-23] MEDS: PRAVASTATIN SOD 40 MG TAB PO SCH (09:19)
[2016-11-23] MEDS: CLOPIDOGREL 75 MG TAB PO SCH (09:19)
[2016-11-23] MEDS: LEVOTHYROXINE SODIUM 75 MCG TAB PO SCH (09:19)
[2016-11-23] MEDS: ASPIRIN 81 MG CHEW TAB PO SCH (09:19)
[2016-11-23] MEDS: SODIUM CHLORIDE 0.9% FLUSH 10 ML FLUSH IV FLUSH SCH ×2 (09:20→21:25)
--- NOTE | 2016-11-23 09:31 | RADRPT ---
EXAM DATE/TIME: 11/23/2016 09:14 [facility] COMPARISON: No previous studies available for comparison. INDICATIONS : Nausea today MEDICAL HISTORY : Hypertension. SURGICAL HISTORY : Cholecystectomy. ENCOUNTER: Subsequent ACUITY: 1 day PAIN SCORE: 0/10 LOCATION: Bilateral chest FINDINGS: Supine view of the abdomen was performed. The abdominal bowel gas pattern is normal. No abnormal ma sses, calcifications, or organomegaly is seen. The osseous structures reveal degenerative changes of the lower lumbar spine. There is a Chacon catheter in place in the bladder with thin contrast in a de compressed bladder and possibly rectal thermometer. CONCLUSION: Benign abdomen. Jose M Nathan MD on November 23, 2016 at 9:28 Board Certified Radiologist. This report was verified electronically.
[2016-11-23] MEDS ORDERED: PROCHLORPERAZINE INJ 10 MG/2 ML VIAL IV PUSH PRN (10:00)
--- NOTE | 2016-11-23 10:11 | RADRPT ---
EXAM DATE/TIME: 11/23/2016 09:35 [facility] COMPARISON: CHEST SINGLE AP, November 20, 2016, 4:27. INDICATIONS : Short of breath, nausea MEDICAL HISTORY : Hypertension. SURGICAL HISTORY : Cholecystectomy. ENCOUNTER: Subsequent ACUITY: 1 day PAIN SCORE: 0/10 LOCATION: Bilateral chest FINDINGS: A single view of the chest demonstrates the lungs to be symmetrically aerated without evidence of mas s, infiltrate or effusion. The cardiomediastinal contours are unremarkable. Osseous structures are intact. CONCLUSION: No acute disease. No significant change has occurred. Jose M Nathan MD on November 23, 2016 at 10:09 Board Certified Radiologist. This report was verified electronically.
[2016-11-23 11:25] LABS: APTT (PATIENT) 50.4 SEC (24.3-30.1)
--- NOTE | 2016-11-23 13:56 | PD.CARD.PN ---
Subjective Subjective Remarks No overnight events Nauseas this afternoon Objective Medications Current Medications Medications (Trade) Dose Ordered Sig/Casa Route Start Time Stop Time Status Last Admin Sodium Chloride 1,000 ml @ 100 mls/hr Q10H IV 11/20/16 05:40 11/22/16 01:50 (NS Flush) 2 ml UNSCH PRN IV FLUSH 11/20/16 05:45 (NS Flush) 2 ml BID IV FLUSH 11/20/16 09:00 11/23/16 09:20 (Tylenol) 650 mg Q6H PRN PO 11/20/16 05:45 ([place] 5-325 Mg) 1 tab Q4H PRN PO 11/20/16 05:45 11/23/16 03:58 (Morphine Inj) 2 mg Q3H PRN IV 11/20/16 05:45 11/23/16 06:57 (Meri-Colace) 1 tab BID PO 11/20/16 09:00 11/23/16 09:18 (Milk Of Magnesia Liq) 30 ml Q12H PRN PO 11/20/16 05:45 (Senokot) 17.2 mg Q12H PRN PO 11/20/16 05:45 (Dulcolax Supp) 10 mg DAILY PRN RECTAL 11/20/16 05:45 (Lactulose Liq) 30 ml DAILY PRN PO 11/20/16 05:45 (Nitroglycerin 2% Oint) 0.5 inch Q6H PRN TOPICAL 11/20/16 05:45 (Lopressor) 25 mg Q12HR PO 11/20/16 09:00 Future Hold 11/21/16 20:42 (Pravachol) 40 mg DAILY PO 11/20/16 09:00 11/23/16 09:19 (Norvasc) 5 mg DAILY PO 11/21/16 09:00 Future Hold 11/21/16 08:42 (Prinivil) 40 mg DAILY PO 11/21/16 09:00 Future Hold 11/21/16 08:43 (Synthroid) 75 mcg DAILY@0600 PO 11/21/16 06:00 11/23/16 09:19 Sodium Chloride 1,000 ml @ 125 mls/hr Q8H IV 11/22/16 14:15 11/23/16 05:21 Tirofiban/Sodium Chloride 250 ml @ 5 mls/hr Q24H IV 11/22/16 14:15 11/22/16 14:24 (Ofirmev 1000 Mg/ 100 ml Inj) 1,000 mg Q6H PRN IV 11/22/16 14:30 11/22/16 14:24 (Aspirin Chew) 81 mg DAILY PO 11/22/16 18:15 11/22/16 18:15 (Plavix) 75 mg DAILY PO 11/23/16 09:00 11/23/16 09:19 (Atropine Inj) 0.5 mg UNSCH PRN IV 11/22/16 17:00 (Zofran Inj) 4 mg Q4H PRN IV 11/22/16 17:00 11/23/16 13:07 Heparin Sodium/ Dextrose 250 ml @ 7 mls/hr TITRATE IV 11/22/16 22:30 11/22/16 22:51 (Compazine Inj) 5 mg Q6H PRN IV PUSH 11/23/16 10:00 (Duoneb Neb) 1 ampule Q6HR NEB NEB 11/23/16 10:00 11/27/16 09:59 Vital Signs / I&O Vital Signs Date Time Temp Pulse Resp B/P (MAP) Pulse Ox O2 Delivery O2 Flow Rate FiO2 11/23/16 12:00 96 11/23/16 12:00 98.6 90 16 108/64 (79) 95 11/23/16 08:23 92 Simple Mask 10.00 11/23/16 08:00 98.8 90 16 103/69 (80) 94 Arterial Line 11/23/16 08:00 94 Simple Mask 7.00 11/23/16 07:10 11/23/16 07:05 11/23/16 07:00 90 11/23/16 07:00 104/69 (115) 11/23/16 06:03 93/54 (107) 11/23/16 05:16 90/48 (97) 11/23/16 04:00 102/52 (105) 11/23/16 03:16 94 Simple Mask 7.00 11/23/16 03:16 79 11/23/16 03:16 99.1 79 15 140/77 (98) 94 11/23/16 03:00 89/52 (100) 11/23/16 02:00 88/54 (100) 11/23/16 01:00 84/46 (100) 11/23/16 00:00 86/46 (102) 11/22/16 23:29 98.9 78 16 142/62 (88) 97 Arterial Line 11/22/16 23:29 97 Simple Mask 7.00 11/22/16 23:00 78 11/22/16 23:00 81/45 (96) 11/22/16 22:06 96 Nasal Cannula 7.00 11/22/16 22:00 89/47 (103) 11/22/16 21:00 98/57 (107) 11/22/16 20:00 101/55 (112) 11/22/16 19:21 98 Simple Mask 7.00 11/22/16 19:21 99.0 74 16 149/78 (101) 98 Arterial Line 11/22/16 19:00 74 11/22/16 19:00 58/42 (106) 11/22/16 18:07 101/56 (109) 11/22/16 17:00 101/59 (105) 11/22/16 16:08 97/60 (115) 11/22/16 16:07 93 Nasal Cannula 6.00 11/22/16 16:07 71 11/22/16 15:25 96.8 69 12 154/90 (111) 97 11/22/16 15:25 96/50 11/22/16 14:34 96.2 11/22/16 14:02 95.6 77 12 90/48 (62) 94 11/22/16 14:02 94/49 (159) I/O 11/22/16 11/22/16 11/22/16 11/23/16 11/23/16 11/23/16 07:00 15:00 23:00 07:00 15:00 23:00 Intake Total 1560 ml 558.2 ml 1138 ml Output Total 1100 ml 2750 ml 900 ml Balance 460 ml -2191.8 ml 238 ml Intake Oral 480 ml 25 ml IV Total 1080 ml 533.2 ml 1138 ml Output Urine Total 1100 ml 2750 ml 900 ml # Bowel Movements 0 0 0 Physical Exam GENERAL: Well-nourished, well-developed patient. SKIN: Warm and dry. HEAD: Normocephalic. EYES: No scleral icterus. No injection or drainage. NECK: Supple, trachea midline. No JVD or lymphadenopathy. CARDIOVASCULAR: Regular rate and rhythm without murmurs, gallops, or rubs. RESPIRATORY: Breath sounds equal bilaterally. No accessory muscle use. GASTROINTESTINAL: Abdomen soft, non-tender, nondistended. EXTREMITIES: No cyanosis, or edema. NEUROLOGICAL: Awake, alert, and oriented x 3. Non-focal. Laboratory Laboratory Tests Test 11/22/16 19:23 11/22/16 19:34 11/23/16 01:00 11/23/16 04:35 White Blood Count 18.2 TH/MM3 17.3 TH/MM3 Red Blood Count 4.13 MIL/MM3 3.75 MIL/MM3 Hemoglobin 13.4 GM/DL 12.4 GM/DL Hematocrit 40.3 % 37.0 % Mean Corpuscular Volume 97.7 FL 98.6 FL Mean Corpuscular Hemoglobin 32.5 PG 33.1 PG Mean Corpuscular Hemoglobin Concent 33.2 % 33.6 % Red Cell Distribution Width 13.4 % 13.4 % Platelet Count 213 TH/MM3 204 TH/MM3 Mean Platelet Volume 8.0 FL 8.9 FL Neutrophils (%) (Auto) 86.4 % 82.2 % Lymphocytes (%) (Auto) 6.7 % 8.3 % Monocytes (%) (Auto) 6.6 % 9.4 % Eosinophils (%) (Auto) 0.1 % 0.0 % Basophils (%) (Auto) 0.2 % 0.1 % Neutrophils # (Auto) 15.8 TH/MM3 14.2 TH/MM3 Lymphocytes # (Auto) 1.2 TH/MM3 1.4 TH/MM3 Monocytes # (Auto) 1.2 TH/MM3 1.6 TH/MM3 Eosinophils # (Auto) 0.0 TH/MM3 0.0 TH/MM3 Basophils # (Auto) 0.0 TH/MM3 0.0 TH/MM3 CBC Comment DIFF FINAL DIFF FINAL Differential Comment Activated Partial Thromboplast Time 234.1 SEC 34.6 SEC 44.2 SEC Nasal Screen MRSA (PCR) MRSA NOT DETECTED Blood Urea Nitrogen 13 MG/DL Creatinine 0.89 MG/DL Random Glucose 124 MG/DL Total Protein 6.0 GM/DL Calcium Level 7.4 MG/DL Sodium Level 145 MEQ/L Potassium Level 3.3 MEQ/L Chloride Level 111 MEQ/L Carbon Dioxide Level 19.4 MEQ/L Anion Gap 15 MEQ/L Estimat Glomerular Filtration Rate 60 ML/MIN Protein Corrected Calcium 8.0 MG/DL Test 11/23/16 09:33 Activated Partial Thromboplast Time 50.4 SEC Assessment and Plan Problem List: (1) Non-STEMI (non-ST elevated myocardial infarction) ICD Codes: I21.4 - Non-ST elevation (NSTEMI) myocardial infarction Status: Acute Plan: 2 Vessel CAD with WARP SPINNER to RCA. Decrease LV systolic function. High Risk PCI s/p PCI to LCx Cardiogenic Shock s/p IABP IABP removed this AM Recommendations: 1. Cont DAPT ASA and Plavix 2. d/c Aggrastat 3. d/c Heparin drip 4. PT/OT 5. Nebs PRN for SOB 6. BB and ACEi given low BP 7 Statin (2) Hypokalemia ICD Codes: E87.6 - Hypokalemia Status: Acute Moi Rogers MD Nov 23, 2016 13:56
[2016-11-23] MEDS: RESP: ALBUTEROL 2.5 MG/IPRATROPIUM 0.5 MG NEB (SCH) NEB ×2 (13:57→22:25)
[2016-11-23] MEDS ORDERED: POTASSIUM CHLORIDE 10 MEQ CONTROLLED RELEASE TAB PO ONE (18:20)
[2016-11-23 18:23] LABS: HEMATOCRIT 36.3 % (35.0-46.0); REVIEW FLAG FINAL
[2016-11-23 18:29] LABS: BICARBONATE 18.6 MEQ/L (21.0-32.0); POTASSIUM 3.7 MEQ/L (3.5-5.1)
[2016-11-23 18:48] LABS: INDIRECT BILIRUBIN 0.5 MG/DL (0.0-0.8); TOTAL BILIRUBIN ADULT 0.6 MG/DL (0.2-1.0)
[2016-11-23 18:49] LABS: CALCIUM-PROTEIN CORRECTED 7.3 MG/DL (8.5-10.1)
[2016-11-24] VITALS (20 sets, daily range): BP systolic 62–112; BP diastolic 38–85; PULSE 99–145; RESP 15–28; TEMP 98–98.9; O2SAT 0–97
[2016-11-24] MEDS ORDERED: ALBUMIN HUMAN 25% 25 GM/100 ML BAGP IV ONE (00:45)
[2016-11-24] MEDS ORDERED: SODIUM CHLOR 0.9% 1000 ML INJ 1,000 ML IV ONE ×2 (00:45→05:00)
[2016-11-24] MEDS: RESP: ALBUTEROL 2.5 MG/IPRATROPIUM 0.5 MG NEB (SCH) NEB ×3 (04:09→19:36)
[2016-11-24] MEDS: LEVOTHYROXINE SODIUM 75 MCG TAB PO SCH (04:59)
[2016-11-24] MEDS: SODIUM CHLOR 0.9% 1000 ML INJ 1,000 ML IV SCH (04:59)
--- NOTE | 2016-11-24 05:25 | RADRPT ---
EXAM DATE/TIME: 11/24/2016 04:52 [facility] COMPARISON: CHEST SINGLE AP, November 23, 2016, 9:35. INDICATIONS : Shortness of breath. MEDICAL HISTORY : Hypertension. Hyperthyroidism SURGICAL HISTORY : Cholecystectomy. ENCOUNTER: Subsequent ACUITY: 4 - 6 days PAIN SCORE: Non-responsive. LOCATION: Bilateral chest FINDINGS: Portable AP view of the chest demonstrates a normal-sized cardiac silhouette with calcification of th e aorta. There is hazy pleural-parenchymal opacity of both lung bases with patchy consolidation bilat erally, left greater than right. No pneumothorax is identified. Bones demonstrate no acute finding. CONCLUSION: Patchy airspace consolidation bilaterally, left greater than right, with likely small bilateral pleur al effusions. Obed Sotelo MD on November 24, 2016 at 5:22 Board Certified Radiologist. This report was verified electronically.
[2016-11-24] MEDS ORDERED: LEVOTHYROXINE SODIUM 50 MCG TAB PO SCH (06:30)
[2016-11-24] MEDS ORDERED: LEVOTHYROXINE SODIUM 75 MCG TAB PO SCH (06:30)
--- NOTE | 2016-11-24 06:43 | HHI.CCPN ---
Subjective Remarks/Hospital Course 86-year-old female with history of hypertension, hypothyroidism, PAD s/p left leg stent, presents with acute onset of chest pain just prior to arrival. She has been taking Plavix however had some dental work done 3 weeks ago, stopped her plavix, and hasn't restarted secondary to bruising. She admits she has been under more stress lately; her and her 90-year-old have been moving this week. She admits a strong family history of heart disease with both parents. She was taken emergently to cardiac catheterization lab where successful PCI to the left circumflex artery in the setting of Non-STEMI was done. Non-STEMI is complicated with left circumflex artery dissection and cardiogenic shock requiring the patient has been placed on IABP by software writer. 11/23 - currently on 12 L simple mask. Saturations 90%. Episodes of nausea overnight. Currently afebrile. IABP removed from left side. Subjective 11/24: Currently on 13 L nonrebreather. Saturations low. Relatively hypotensive. Decreased urine output. Received 2 L normal saline bolus overnight. Objective Vital Signs Date Time Temp Pulse Resp B/P (MAP) Pulse Ox O2 Delivery O2 Flow Rate FiO2 11/24/16 04:56 95 Partial Non-Rebreather 13.00 11/24/16 03:24 98.9 113 15 81/62 (68) Intake and Output 11/24/16 11/24/16 11/24/16 07:59 15:59 23:59 Intake Total 3200 ml Output Total 150 ml Balance 3050 ml Result Diagram: 11/23/16 1740 11/23/16 1740 Imaging Last Impressions Chest X-Ray 11/24/16 0000 Signed Impressions: Service Date/Time: Thursday, November 24, 2016 04:52 - CONCLUSION: Patchy airspace consolidation bilaterally, left greater than right, with likely small bilateral pleural effusions. Obed Sotelo MD Abdomen X-Ray 11/23/16 0000 Signed Impressions: Service Date/Time: Wednesday, November 23, 2016 09:14 - CONCLUSION: Benign abdomen. Jose M Nathan MD Objective Remarks GENERAL: 86-year-old female, sitting in chair in mild respiratory distress on supplemental mask SKIN: Warm and dry. Left lower extremity is cool with palpable pulses. Prior Site of intra-aortic balloon pump is clean dry and intact without hematoma HEAD: Normocephalic. EYES: Pupils are reactive. No scleral icterus. No injection or drainage. NECK: Supple, trachea midline. No JVD or lymphadenopathy. CARDIOVASCULAR: Tachycardia, RR.. S1, S2. No S4. RESPIRATORY: Breath sounds equal bilaterally. Few crackles appreciated in bases bilaterally. No accessory muscle use. GASTROINTESTINAL: Abdomen soft, non-tender, nondistended. Hypoactive bowel sounds are appreciated MUSCULOSKELETAL: No abuse deformities. NEURO: Cranial nerves II through XII grossly intact. Strength is equal and symmetric. Normal sensation. A/P Assessment and Plan Neuro/Psych: Acetaminophen for fever [place]/morphine for pain management CV: Cardiogenic shock Non-STEMI History of hypertension Severe TR. Pulmonary hypertension. Systolic heart failure likely acute Lactic acidosis 11/22 cardiac catheterization revealed left main patent. RCA total occlusion/ chronic with collaterals. Left circumflex 80% distal. PCI place. Complicated by dissection and placement IABP Intra-aortic balloon has been removed 11/23 -Heparin drip was discontinued. Integrilin has been discontinued Patient is currently on aspirin 81 mg daily and clopidogrel 75 mg by mouth daily /home medications. Home medications for hypertension include amlodipine 5 mill grams daily and benazepril 40 mg by mouth daily. Both feet held Serial lactates until clear. 2-D echo revealed EF 3035%. Apical hypokinesis. Severe TR. Pulmonary arterial pressures 51 mmHg. Repeat 2-D echocardiogram pending Started on David-Synephrine at 40 g per minute. Central line has been placed. Check CVP. Check flotrac once arterial access established. Resp: Acute respiratory insufficiency Follow-up on chest x-ray. Possible aspiration plus/minus pleural effusion/ volume overload Currently on nonrebreather to maintain saturations greater than equal to 92% Incentive spirometry while awake. Bronchodilators every 6 hours A cappella every 6 hours with bronchodilators GI: Nausea/vomiting Yesterday, essentially normal liver function tests/lipase/KUB. Zofran/Compazine for nausea. : Chacon catheter has been placed for accurate I's and O's in a critically ill patient. Remove when clinically indicated Endo: Hypothyroidism Currently on Levoxyl 50 g by mouth daily. TSH was 0.137 Renal: Acute kidney injury Creatinine elevated last night. Check urine electrolytes and eosinophils. Heme: Leukocytosis Anemia Likely reactive. Follow up CBC in AM. Monitor trends ID: Initiate piperacillin/tazobactam and 1 dose of vancomycin for possible pneumonia /aspiration Blood cultures 2 times sputum 1 now Monitor for signs or symptoms of infection FEN: Hypokalemia Hypocalcemia Replace per ICU electrolyte protocol if indicated. calcium chloride 1 g 1 now. MSK: PT evaluate and treat Access - Utilize peripheral IV. Central line if indicated Prophylaxis - GI - not indicated - DVT - heparin drip Critical care time 30 minutes. Patient will likely need central line and vasopressors support short-term. High likelihood of intubation. Sesar Field MD Nov 24, 2016 06:43
[2016-11-24] MEDS ORDERED: FUROSEMIDE 40 MG/4 ML VIAL IV PUSH ONE (06:45)
[2016-11-24] MEDS ORDERED: TERBUTALINE INJ 1 MG/ML AMP SQ PRN (06:45)
[2016-11-24 06:49] LABS: BLOOD GAS BASE EXCESS -13.2 mmol/L (-2-2); BLOOD GAS CARBOXYHEMOGLOBIN 1.2 % (0-4); BLOOD GAS HCO3 11 mmol/L (22-26); BLOOD GAS METHEMOGLOBIN 0.9 % (0-2); BLOOD GAS O2 HGB SATURATION 95 % (90-100); BLOOD GAS OXYGEN CONTENT 13.9 Vol % (12.0-20.0); BLOOD GAS PCO2 20 mmHg (38-42); BLOOD GAS PO2 98 mmHg (61-120); BLOOD GAS TOTAL HGB 10.2 G/DL (12.0-16.0); TEMP CORR TO 98.6
[2016-11-24 06:50] LABS: CRITICAL VALUE YES; DRAW SITE LT RADIAL; FIO2 100 %; LITER FLOW 15 L/M; NUMBER OF ARTERIAL PUNCTURES 1; STAT YES; ULNAR PULSE PRESENT
[2016-11-24] MEDS: PHENYLEPHRINE INJ 160 MG in DEXTROSE 5% IN WATE 500 ML INJ 484 ML IV PRN ×4 (07:15→22:34)
[2016-11-24] MEDS ORDERED: SODIUM CHLORIDE 0.9% FLUSH 10 ML FLUSH IVF PRN (07:45)
--- NOTE | 2016-11-24 07:46 | PD.PROCEDR ---
Central Line Procedure REASON FOR PROCEDURE Central venous access PROCEDURE PERFORMED Central line placement: Right IJ CVL CONSENT Informed consent for procedure was obtained. The risks and benefits of the procedure were discussed to include but limited to bleeding, clot formation, infection, and even . ANESTHESIA Local injection of 1% Lidocaine DESCRIPTION OF THE PROCEDURE The patient was placed in supine, mild Trendelenburg position. The area was exposed and cleansed with ChloraPrep, times two. Large sterile drape was used to cover the patient, with the site exposed, under sterile conditions including cap, face mask, sterile gown, and sterile gloves. On single attempt, the introducer needle was inserted with negative pressure in syringe and venous flash was obtained. The guide wire was then advanced without any restriction and the needle was removed. The dilator was used without any complications. Using Seldinger technique the triple-lumen catheter was advanced over the guide wire to a depth of 16 centimeters. The guide wire was removed. All ports were aspirated with dark venous blood return and flushed easily with sterile saline. All ports were capped. Antibiotic disc was placed around central line at puncture site. The central line was secured to the skin with two interrupted 2.0 silk sutures. The area was bandaged with sterile see-through central line bandage. RADIOLOGICAL DATA Ultrasound guidance was used to locate right internal jugular vein. Doppler/ color flow was used to confirm venous flow. COMPLICATIONS: No apparent complications ESTIMATED BLOOD LOSS: Less than 1 cc. Sesar Field MD Nov 24, 2016 07:46
[2016-11-24] MEDS ORDERED: VANCOMYCIN INJ 1,000 MG in SODIUM CHLOR 0.9% 250 ML INJ 250 ML IV ONE (08:00)
[2016-11-24] MEDS: ASPIRIN 81 MG CHEW TAB PO SCH (08:43)
[2016-11-24] MEDS: PIPERACIL-TAZO 2.25 GM PREMIX 50 ML IV SCH ×3 (08:43→22:55)
[2016-11-24] MEDS: DOCUSATE SODIUM 50 MG/SENNA 8.6 MG TAB PO SCH ×2 (08:43→21:00)
[2016-11-24] MEDS: PRAVASTATIN SOD 40 MG TAB PO SCH (08:43)
[2016-11-24] MEDS: CLOPIDOGREL 75 MG TAB PO SCH (08:43)
[2016-11-24] MEDS ORDERED: SODIUM CHLORIDE 0.9% FLUSH 10 ML FLUSH IVF SCH (09:00)
[2016-11-24] MEDS ORDERED: CALCIUM CHLORIDE INJ 1 GM in SODIUM CHLORIDE 0.9% INJ 100 ML IV ONE (09:00)
--- NOTE | 2016-11-24 09:05 | PD.PROCEDR ---
Procedure Note Procedure DATE: 11/24/2016 PROCEDURE: Left axillary arterial catheter placement INDICATION: Emergent hemodynamic access DETAILS OF PROCEDURE The patient was placed in supine position. The skin was cleansed with Chloraprep. Additional barrier precautions included large sterile drape, sterile gloves, sterile gown, face mask, and hat. 1% lidocaine was used for local anesthesia. Under direct ultrasound guidance and on the initial attempt, the artery was accessed with an introducer needle. The guide wire was advanced. Using Seldinger technique 20 gauge arterial catheter was placed. The guide wire was removed. The catheter was connected to a transducer line and flushed with saline. The video monitor displayed normal arterial wave forms. The catheter was secured with 2-0 silk. A sterile dressing with antibiotic disc was applied. ESTIMATED BLOOD LOSS: minimal COMPLICATIONS: None Sesar Field MD Nov 24, 2016 09:05
--- NOTE | 2016-11-24 09:08 | RADRPT ---
EXAM DATE/TIME: 11/24/2016 07:56 [facility] COMPARISON: CHEST SINGLE AP, November 24, 2016, 4:52. INDICATIONS : Post central line placement. MEDICAL HISTORY : Hypertension. Hyperthyroidism SURGICAL HISTORY : Cholecystectomy. ENCOUNTER: Subsequent ACUITY: 1 day PAIN SCORE: Non-responsive. LOCATION: Bilateral chest FINDINGS: Right neck central line is present in good position. There is no evidence of pneumothorax or other co mplication of placement. Patchy bilateral non-confluent infiltrates are present bilaterally, unchange d. Cardiomediastinal contours are stable. CONCLUSION: Satisfactory central line positioning. No pneumothorax Obed Damon MD on November 24, 2016 at 9:05 Board Certified Radiologist. This report was verified electronically.
[2016-11-24 09:25] LABS: HEMATOCRIT 32.7 % (35.0-46.0); MEAN CELL VOLUME 99.3 FL (80.0-100.0); MEAN CORPUSCULAR HEMOGLOBIN 32.5 PG (27.0-34.0); MEAN CORPUSCULAR HGB CONC 32.7 % (32.0-36.0); PLATELET COUNT 174 TH/MM3 (150-450); RED BLOOD COUNT 3.29 MIL/MM3 (4.00-5.30); RED CELL DISTRIBUTION WIDTH 13.9 % (11.6-17.2); REVIEW FLAG FINAL; WHITE BLOOD COUNT 24.2 TH/MM3 (4.0-11.0)
[2016-11-24 09:27] LABS: APTT (PATIENT) 26.6 SEC (24.3-30.1)
[2016-11-24 09:39] LABS: BICARBONATE 11.5 MEQ/L (21.0-32.0); MAGNESIUM 1.6 MG/DL (1.5-2.5)
[2016-11-24 09:42] LABS: INDIRECT BILIRUBIN 0.6 MG/DL (0.0-0.8); TOTAL BILIRUBIN ADULT 1.2 MG/DL (0.2-1.0)
--- NOTE | 2016-11-24 11:16 | ECHRPT ---
Indication: ENDOCARDITIS CONCLUSIONS Technically difficult study due to poor windows and patient being tachycardic The left ventricular systolic function is severely reduced with an estimated ejection fraction in th e range of 30-35%. Hypokinesis to akinesis of the inferior wall with mild hypokinesis of the laterall wall. Moderate mitral valve regurgitation. There is at least moderate tricuspid valve regurgitation. There is estimated mild pulmonary hypertension present (range 40-50 mmHg). Mild pulmonary valve regurgitation. BP: / HR: Rhythm: Atrial fibrillation MEASUREMENTS (Male / Female) Normal Values Technical Quality:Fair 2D ECHO LV Diastolic Diameter PLAX 3.6 cm 4.2 - 5.9 / 3.9 - 5.3 cm LV Systolic Diameter PLAX 3.1 cm IVS Diastolic Thickness 1.4 cm 0.6 - 1.0 / 0.6 - 0.9 cm LVPW Diastolic Thickness 1.0 cm 0.6 - 1.0 / 0.6 - 0.9 cm LV Relative Wall Thickness 0.7 RV Internal Dim ED PLAX 2.2 cm LVOT Diameter 1.9 cm LA Systolic Diameter LX 3.3 cm 3.0 - 4.0 / 2.7 - 3.8 cm LV Ejection Fraction MOD 4C 29.7 % LV Ejection Fraction 4C AL 32.2 % M-MODE Aortic Root Diameter MM 2.8 cm LA Systolic Diameter MM 3.3 cm LA Ao Ratio MM 1.2 AV Cusp Separation MM 1.3 cm DOPPLER AV Peak Velocity 112.0 cm/s AV Peak Gradient 5.0 mmHg LVOT Peak Velocity 57.8 cm/s LVOT Peak Gradient 1.3 mmHg AV Area Cont Eq pk 1.5 cm LV E' Lateral Velocity 7.5 cm/s LV E' Septal Velocity 5.1 cm/s TR Peak Velocity 331.0 cm/s TR Peak Gradient 43.8 mmHg PV Peak Velocity 99.1 cm/s PV Peak Gradient 3.9 mmHg FINDINGS LEFT VENTRICLE The left ventricular systolic function is severely reduced with an estimated ejection fraction in th e range of 30-35%. Normal left ventricular size. Nonobstructive prominent basal hypertrophy is present consistent with sigmoid septum. Hypokinesis to akinesis of the inferior wall with mild hypokinesis of the laterall wall. RIGHT VENTRICLE Normal right ventricular size and systolic function. LEFT ATRIUM The left atrial size is mildly dilated. RIGHT ATRIUM The right atrial size is normal. ATRIAL SEPTUM Normal atrial septal thickness without atrial level shunting by limited color doppler interrogation. AORTA The aortic root and proximal ascending aorta are normal in size on limited imaging. MITRAL VALVE Structurally normal mitral valve. Moderate mitral valve regurgitation. The mitral valve regurgitation jet is directed centrally due to poor leaflet coaptation. No mitral valve stenosis. AORTIC VALVE Aortic valve sclerosis is present. Trileaflet aortic valve. No aortic valve regurgitation. No aortic valve stenosis. TRICUSPID VALVE Structurally normal tricuspid valve. There is at least moderate tricuspid valve regurgitation. There is estimated mild pulmonary hypertension present (range 40-50 mmHg). PULMONARY VALVE Mild pulmonary valve regurgitation. VESSELS The inferior vena cava is normal in size. PERICARDIUM No pericardial effusion. Zain Guthrie DO (Electronically Signed) Final Date:24 November 2016 11:15
[2016-11-24] MEDS ORDERED: ETOMIDATE 20 MG/10 ML VIAL IV PUSH ONE (13:15)
[2016-11-24] MEDS ORDERED: ETOMIDATE 20 MG/10 ML VIAL ONE (13:15)
[2016-11-24] MEDS ORDERED: ROCURONIUM INJ 50 MG/5 ML VIAL IV ONE (13:15)
[2016-11-24] MEDS ORDERED: ROCURONIUM INJ 50 MG/5 ML VIAL ONE (13:16)
--- NOTE | 2016-11-24 13:43 | PD.PROCEDR ---
Procedure Note Procedure DATE: 11/24/2016 PROCEDURE: Orotracheal intubation INDICATION: Acute hypoxemic hypercapnic respiratory failure DETAILS OF PROCEDURE The patient was placed in optimal position and preoxygenated with 100% FiO2 via bag valve mask. At the start oxygen saturation was 100%. The patient was administered 20 mg etomidate IV and 50 mg rocuronium IV. I entered the oropharynx with a size 4 GVL glidescope blade and obtained a grade 2 view of the airway. On single attempt a size 8.0 cuffed endotracheal tube was passed through the vocal cords. Correct tube location was confirmed with end tidal CO2 detector and by auscultating over bilateral lung trujillo. The endotracheal tube was secured with adhesive tape at a depth of 24 cm at the lips. The patient was connected to the ventilator. The patient tolerated the procedure well without any apparent complications. Oxygen saturations were maintained greater than 95% all times. STAT chest x-ray pending at time of dictation. Sesar Field MD Nov 24, 2016 13:43
[2016-11-24] MEDS ORDERED: SODIUM BICARBONATE 8.4% INJ 150 MEQ in WATER STERILE FOR INJ 850 ML IV SCH (13:45)
[2016-11-24] MEDS ORDERED: fentaNYL DRIP 250 ML IV PRN (13:45)
[2016-11-24] MEDS ORDERED: PROPOFOL 1000 MG/100 ML INJ 100 ML IV PRN (13:45)
[2016-11-24] MEDS ORDERED: MIDAZOLAM 100 MG/100 ML INJ 100 ML IV PRN ×2 (13:45)
--- NOTE | 2016-11-24 13:45 | PD.CONS ---
HPI Service Nephrology Consult Requested By Reason for Consult CHARLETTE Primary Care Physician Susan Harrell MD History of Present Illness This is an 86 y/o female patient who was admitted on 11/20 for chest pain, was found to have NSTEMI. She has a hx of hypothyroidism, PAD s/p stent who was on plavix until recently, and HTN. She had PCI on 11/22 with BMS to left circumflex artery that was complicated by arterial dissection requiring IABP that has since been removed. Her renal function was normal on arrival. Yesterday her creatinine went from 0.89 to 1.37, and is 2.1 today. In addition she has severe metabolic acidosis with C02 of 11. We were consulted for renal management. Today she became hypoxic and was transferred to [facility] where she was intubated. Some information was pulled from medical record. She is currently tachycardic, hypotensive and started on pressors. She is a full code this admission. (Cherise Barahona) Review of Systems ROS Limitations: Intubated, Unresponsive (Cherise Barahona) Past Family Social History Allergies: Coded Allergies: No Known Allergies (Unverified , 11/20/16) Past Medical History Hypertension PAD Hypothyroidism CAD Past Surgical History Cholecystectomy Left leg stent placement Hysterectomy Dental procedures PCI/ L and R heart cath on 11/22/16 with BMS to left circ Reported Medications Lotrel 5-40 mg Capsule (Amlodipine Besylate/Benazepril) 1 Each Capsule Levothyroxine (Levothyroxine Sodium) 75 Mcg Tab 75 Mcg PO DAILY Clopidogrel (Clopidogrel Bisulfate) 75 Mg Tab 75 Mg PO DAILY Active Ordered Medications Current Medications Medications (Trade) Dose Ordered Sig/Casa Route Start Time Stop Time Status Last Admin (Tylenol) 650 mg Q6H PRN PO 11/20/16 05:45 ([place] 5-325 Mg) 1 tab Q4H PRN PO 11/20/16 05:45 11/23/16 03:58 (Morphine Inj) 2 mg Q3H PRN IV 11/20/16 05:45 11/23/16 06:57 (Meri-Colace) 1 tab BID PO 11/20/16 09:00 11/24/16 08:43 (Milk Of Magnesia Liq) 30 ml Q12H PRN PO 11/20/16 05:45 (Senokot) 17.2 mg Q12H PRN PO 11/20/16 05:45 (Dulcolax Supp) 10 mg DAILY PRN RECTAL 11/20/16 05:45 (Lactulose Liq) 30 ml DAILY PRN PO 11/20/16 05:45 (Nitroglycerin 2% Oint) 0.5 inch Q6H PRN TOPICAL 11/20/16 05:45 (Lopressor) 25 mg Q12HR PO 11/20/16 09:00 Future Hold 11/21/16 20:42 (Pravachol) 40 mg DAILY PO 11/20/16 09:00 11/24/16 08:43 (Norvasc) 5 mg DAILY PO 11/21/16 09:00 Future Hold 11/21/16 08:42 (Prinivil) 40 mg DAILY PO 11/21/16 09:00 Future Hold 11/21/16 08:43 (Ofirmev 1000 Mg/ 100 ml Inj) 1,000 mg Q6H PRN IV 11/22/16 14:30 11/22/16 14:24 (Aspirin Chew) 81 mg DAILY PO 11/22/16 18:15 11/24/16 08:43 (Plavix) 75 mg DAILY PO 11/23/16 09:00 11/24/16 08:43 (Atropine Inj) 0.5 mg UNSCH PRN IV 11/22/16 17:00 (Zofran Inj) 4 mg Q4H PRN IV 11/22/16 17:00 11/23/16 13:07 Heparin Sodium/ Dextrose 250 ml @ 7 mls/hr TITRATE IV 11/22/16 22:30 11/22/16 22:51 (Compazine Inj) 5 mg Q6H PRN IV PUSH 11/23/16 10:00 11/23/16 14:15 (Duoneb Neb) 1 ampule Q6HR NEB NEB 11/23/16 10:00 11/27/16 09:59 11/24/16 09:25 (Synthroid) 50 mcg DAILY@0600 PO 11/24/16 06:30 Phenylephrine HCl 160 mg/Dextrose 500 ml @ 7.5 mls/hr Q24H PRN IV 11/24/16 06:35 11/24/16 07:15 (Brethine Inj) 1 mg UNSCH PRN SQ 11/24/16 06:45 (NS Flush) DAILY IVF 11/24/16 09:00 11/24/16 08:36 (NS Flush) UNSCH PRN IVF 11/24/16 07:45 Piperacillin Sod/ Tazobactam Sod 50 ml @ 100 mls/hr Q6H IV 11/24/16 09:00 11/24/16 08:43 (Peridex 0.12% Liq) 15 ml BID@08,20 MT 11/24/16 20:00 Family History unable to obtain Social History from medical record: Quit smoking tobacco 30+ years ago Drinks 1 glass of wine nightly No illicit drug use (Cherise Barahona) Physical Exam Vital Signs Vital Signs Date Time Temp Pulse Resp B/P (MAP) Pulse Ox O2 Delivery O2 Flow Rate FiO2 11/24/16 09:00 97 100 11/24/16 08:08 97 Non-Rebreather 15.00 11/24/16 08:00 92 Simple Mask 12.00 11/24/16 07:15 130 90/62 11/24/16 04:56 95 Partial Non-Rebreather 13.00 11/24/16 04:10 96 Partial Rebreather 13.00 11/24/16 03:24 98.9 113 15 81/62 (68) 92 11/24/16 03:24 113 11/24/16 03:24 92 Simple Mask 12.00 11/23/16 23:24 99.1 104 15 98/63 (75) 96 11/23/16 23:24 104 11/23/16 23:24 96 Simple Mask 7.00 11/23/16 22:25 98 Simple Mask 8.00 11/23/16 19:11 95 Simple Mask 7.00 11/23/16 19:11 98.5 97 15 91/58 (69) 95 11/23/16 19:00 97 11/23/16 16:42 94 Simple Mask 7.00 11/23/16 16:00 98.5 90 18 95/65 (75) 94 11/23/16 15:00 88 11/23/16 13:57 94 Simple Mask 10.00 Physical Exam Elderly female patient intubated, unresponsive S1/S2, tachycardic no murmurs or rubs left breast hematoma abd: soft, non tender lungs clear, vented lung sounds Ext: no edema costa draining clear urine Lines; costa, TLC right IJ; left axillary A line Laboratory Laboratory Tests Test 11/23/16 17:40 11/24/16 06:32 11/24/16 09:01 Hemoglobin 11.7 10.7 Hematocrit 36.3 32.7 Blood Urea Nitrogen 20 31 Creatinine 1.37 2.10 Random Glucose 165 215 Total Protein 5.9 5.8 Calcium Level 6.7 7.6 Sodium Level 145 144 Potassium Level 3.7 4.0 Chloride Level 115 115 Carbon Dioxide Level 18.6 11.5 Anion Gap 11 18 Estimat Glomerular Filtration Rate 37 22 Lactic Acid Level 3.6 5.9 Protein Corrected Calcium 7.3 Total Bilirubin 0.6 1.2 Direct Bilirubin 0.1 0.6 Indirect Bilirubin 0.5 0.6 Aspartate Amino Transf (AST/SGOT) 446 353 Alanine Aminotransferase (ALT/SGPT) 75 73 Alkaline Phosphatase 48 54 Ammonia 21 Albumin 2.8 2.9 Amylase Level 31 Lipase 57 41 Thyroid Stimulating Hormone 3rd Gen 0.137 Blood Gas Puncture Site LT RADIAL Blood Gas Patient Temperature 98.6 Blood Gas HCO3 11 Blood Gas Base Excess -13.2 Blood Gas Oxygen Saturation 95 Arterial Blood pH 7.37 Arterial Blood Partial Pressure CO2 20 Arterial Blood Partial Pressure O2 98 Arterial Blood Oxygen Content 13.9 Arterial Blood Carboxyhemoglobin 1.2 Arterial Blood Methemoglobin 0.9 Blood Gas Hemoglobin 10.2 Oxygen Delivery Device Non-Rebreathing Mask Blood Gas Liter Flow 15 Blood Gas Inspired Oxygen 100 White Blood Count 24.2 Red Blood Count 3.29 Mean Corpuscular Volume 99.3 Mean Corpuscular Hemoglobin 32.5 Mean Corpuscular Hemoglobin Concent 32.7 Red Cell Distribution Width 13.9 Platelet Count 174 Mean Platelet Volume 8.6 Activated Partial Thromboplast Time 26.6 Phosphorus Level 3.8 Magnesium Level 1.6 Procalcitonin 0.18 Date/Time Source Procedure Growth Status 11/24/16 11:13 Blood Peripheral Aerobic Blood Culture Pending Received 11/24/16 11:13 Blood Peripheral Anaerobic Blood Culture Pending Received (Cherise Barahona) Result Diagram: 11/24/16 0901 11/24/16 0901 Imaging Last 72 hours Impressions Chest X-Ray 11/24/16 0742 Signed Impressions: Service Date/Time: Thursday, November 24, 2016 07:56 - CONCLUSION: Satisfactory central line positioning. No pneumothorax Obed Damon MD Chest X-Ray 11/24/16 0000 Signed Impressions: Service Date/Time: Thursday, November 24, 2016 04:52 - CONCLUSION: Patchy airspace consolidation bilaterally, left greater than right, with likely small bilateral pleural effusions. Obed Sotelo MD Chest X-Ray 11/23/16 0000 Signed Impressions: Service Date/Time: Wednesday, November 23, 2016 09:35 - CONCLUSION: No acute disease. No significant change has occurred. Jose M Nathan MD Abdomen X-Ray 11/23/16 0000 Signed Impressions: Service Date/Time: Wednesday, November 23, 2016 09:14 - CONCLUSION: Benign abdomen. Jose M Nathan MD (Cherise Barahona) Assessment and Plan Problem List: (1) CHARLETTE (acute kidney injury) ICD Codes: N17.9 - Acute kidney failure, unspecified Plan: She had normal renal function on arrival CHARLETTE multifactorial; may be contrast induced nephropathy from dosage received during cardiac cath on 11/22 more recently she has been in cardiogenic shock with hypotension and tachycardia , she may have suffered hypoperfusion injury she is non oliguric but urine output appears to have slowed worsening metabolic acidosis, lactic acidosis at this time start bicarb drip, sterile water with 125 mEq at 75 cc/hr monitor renal function and urine output UA negative for protein or infection abdominal US ordered to evaluate for obstruction correct electrolytes as needed obtain labs in am, avoid nephrotoxic medications and renally dose when appropriate (2) Non-STEMI (non-ST elevated myocardial infarction) ICD Codes: I21.4 - Non-ST elevation (NSTEMI) myocardial infarction Status: Acute Plan: s/p PCI with stent to left circumflex cardiology following hemodynamic instability , tachycardic and hypotensive pressor support if needed , started on phenylephrine gtt (3) Respiratory failure ICD Codes: J96.90 - Respiratory failure, unspecified, unspecified whether with hypoxia or hypercapnia Plan: s/p intubation CCM managing probable pneumonia, continue antibiotic therapy monitor clinically (Cherise Barahona) Assessment and Plan patient was seen and examined. Seen in IMC. Intubated, hypoxic, hypotensive. Urine output about 10ml/hour. Severe lactic acidosis. CHARLETTE could be due to ATN, but also consider cholesterol embolization. Very poor prognosis. Continue efforts to stabilize hemodynamics. Continue bicarbonate drip. (Neel Dee MD) Cherise Barahona Nov 24, 2016 13:45 Neel Dee MD Nov 24, 2016 17:12
--- NOTE | 2016-11-24 14:25 | RADRPT ---
EXAM DATE/TIME: 11/24/2016 13:53 [facility] COMPARISON: CHEST SINGLE AP, November 24, 2016, 7:56. INDICATIONS : Endotracheal tube placement. MEDICAL HISTORY : None. SURGICAL HISTORY : None. ENCOUNTER: Initial ACUITY: 4 - 6 days PAIN SCORE: Non-responsive. LOCATION: chest FINDINGS: A single portable frontal view of the chest shows an endotracheal tube with the tip 3 cm proximal to the ayad. Right-sided central line in good position. No pneumothorax. Patchy areas of parenchymal c onsolidation scattered throughout both lungs. These are stable. No discrete effusions. Heart is at th e upper limits of normal in terms of size. CONCLUSION: 1. Endotracheal tube. 2. Unchanged bilateral pulmonary infiltrates. Nick Allred Jr., MD on November 24, 2016 at 14:22 Board Certified Radiologist. This report was verified electronically.
[2016-11-24 14:50] LABS: BLOOD GAS BASE EXCESS -18.3 mmol/L (-2-2); BLOOD GAS CARBOXYHEMOGLOBIN 0.9 % (0-4); BLOOD GAS HCO3 8 mmol/L (22-26); BLOOD GAS METHEMOGLOBIN 1.2 % (0-2); BLOOD GAS O2 HGB SATURATION 95 % (90-100); BLOOD GAS PCO2 18 mmHg (38-42); BLOOD GAS PO2 121 mmHg (61-120); BLOOD GAS TOTAL HGB 11.1 G/DL (12.0-16.0); TEMP CORR TO 98.6
[2016-11-24 14:51] LABS: CRITICAL VALUE YES; DRAW SITE ART LINE; FIO2 100 %; NUMBER OF ARTERIAL PUNCTURES 0; OXYGEN DEVICE VENTILATOR; STAT NO; ULNAR PULSE PRESENT; VENT SETTINGS PRVC/AC/20/500/PEEP5
[2016-11-24] MEDS ORDERED: SODIUM BICARBONATE IV SCH (15:00)
[2016-11-24] MEDS ORDERED: WATER STERILE FOR IV SCH (15:00)
[2016-11-24] MEDS ORDERED: SODIUM BICARBONATE 8.4% INJ 50 MEQ/50 ML SYR IV PUSH ONE (15:15)
[2016-11-24] MEDS ORDERED: SODIUM BICARBONATE 8.4% INJ 50 ML ONE (15:31)
--- NOTE | 2016-11-24 15:45 | RADRPT ---
EXAM DATE/TIME: 11/24/2016 13:47 [facility] COMPARISON: No previous studies available for comparison. INDICATIONS : Nausea/vomiting. Abnormal labs. MEDICAL HISTORY : Hypertension. Arthritis. Hypothyroidism. Peripheral arterial disease. Coronary artery disease. Myocar dial infarction. SURGICAL HISTORY : Cholecystectomy. Hysterectomy. Cardiac catheterization. Left leg stent. ENCOUNTER: Initial ACUITY: 1 day PAIN SCORE: Nonresponsive. LOCATION: Bilateral upper quadrant MEASUREMENTS: LIVER: 15.5 cm length COMMON DUCT: 5 mm RIGHT KIDNEY: 10.5 x 4.2 x 5.6 cm LEFT KIDNEY: 10.0 x 4.7 x 5.6 cm SPLEEN: 8.0 cm length AORTA: 2.2cm maximal FINDINGS: The liver and spleen are normal in size and no focal defects are identified. There is hepatopedal lit w within the portal vein. The kidneys are normal bilaterally without evidence of mass or hydronephros is. The gallbladder is surgically absent. The pancreas demonstrates no evidence of mass and there is no dilatation of the pancreatic duct. A small left sided effusion is present. Trace ascites is presen t left upper quadrant. CONCLUSION: 1. Trace ascites. 2. No evidence of acute abdominal process. No masses are identified. Boris Wilkerson MD on November 24, 2016 at 15:28 Board Certified Radiologist. This report was verified electronically.
--- NOTE | 2016-11-24 17:12 | EKG ---
Date Performed: 11/24/2016 Time Performed: 04:42:32 PTAGE: 86 years EKG: CONSIDER ACUTE ST ELEVATION PR Sinus tachycardia Possible anterior infarct - age un determined Inferior ST elevation, CONSIDER ACUTE INFARCT Anteroseptal ST depression is probably recip rocal to inferior infarct Lateral ST-T changes may be due to myocardial ischemia Low QRS voltages in precordial leads Compared to previous tracing, the patient is now tachycardic Clinical correlation fo r acute PR requested Abnormal ECG PREVIOUS TRACING : 11/22/2016 10.24 DOCTOR: Caren Lr Interpretating Date/Time 11/24/2016 17:06:01
[2016-11-24 17:14] LABS: INTERNATIONAL NORMALIZED RATIO 1.3 RATIO; PROTHROMBIN TIME - PATIENT 14.9 SEC (9.8-11.6)
[2016-11-24] MEDS ORDERED: CHLORHEXIDINE 0.12% (ORAL KIT) 15 ML CUP MT SCH ×3 (20:00)
[2016-11-24 20:07] LABS: BLOOD GAS BASE EXCESS -15.3 mmol/L (-2-2); BLOOD GAS CARBOXYHEMOGLOBIN 0.9 % (0-4); BLOOD GAS HCO3 11 mmol/L (22-26); BLOOD GAS O2 HGB SATURATION 95 % (90-100); BLOOD GAS OXYGEN CONTENT 14.6 Vol % (12.0-20.0); BLOOD GAS PCO2 27 mmHg (38-42); BLOOD GAS PO2 115 mmHg (61-120); BLOOD GAS TOTAL HGB 10.8 G/DL (12.0-16.0); TEMP CORR TO 98.6
[2016-11-24 20:08] LABS: CRITICAL VALUE YES; DRAW SITE ART LINE; FIO2 100 %; OXYGEN DEVICE VENTILATOR; STAT NO; VENT SETTINGS PRVC/AC
[2016-11-24] MEDS ORDERED: DOBUTamine PREMIX DRIP 250 ML IV SCH (20:30)
[2016-11-24 21:00] LABS: POTASSIUM 4.1 MEQ/L (3.5-5.1)
[2016-11-24] MEDS ORDERED: NOREPINEPHRINE 4 MG/D5W 250 ML IV PRN (21:45)
[2016-11-24] MEDS ORDERED: ARTIFICIAL TEARS OPTH SOLN 15 ML BTL EACH EYE SCH (22:00)
[2016-11-25] VITALS: BP_SYST 58; BP_SYST 62; BP_DIAS 36; BP_DIAS 43; PULSE 141; RESP 19; TEMP 97.8
[2016-11-25 01:00] VITALS: BP_SYST 54; BP_SYST 57; BP_DIAS 35; BP_DIAS 38; PULSE 136; RESP 20
[2016-11-25] MEDS ORDERED: IOHEXOL 350 MG/ML 50 ML BTL (for Cath Lab) OTHER ONE (08:54)
[2016-11-25] MEDS ORDERED: IOHEXOL 350 MG/ML 100 ML BTL (for Cath Lab) OTHER ONE (08:54)
--- NOTE | 2016-12-16 07:12 | HHI.DS ---
Discharge Summary Admission Date Nov 20, 2016 at 05:45 Discharge Date: Nov 26, 2016 Admitting Diagnosis NSTEMI. Hypokalemia. (1) Non-STEMI (non-ST elevated myocardial infarction) ICD Code: I21.4 - Non-ST elevation (NSTEMI) myocardial infarction Diagnosis: Principal Status: Acute (2) Hypokalemia ICD Code: E87.6 - Hypokalemia Diagnosis: Principal Status: Acute (3) Acute respiratory failure ICD Code: J96.00 - Acute respiratory failure, unspecified whether with hypoxia or hypercapnia Diagnosis: Principal Status: Acute (4) CHARLETTE (acute kidney injury) ICD Code: N17.9 - Acute kidney failure, unspecified Diagnosis: Principal Status: Acute Brief History Written by Joy Harris, acting as scribe for Dr. Arias on 11/20/16 at 09: 50. 86-year-old female with history of hypertension, hypothyroidism, PAD s/p left leg stent, presents with acute onset of chest pain just prior to arrival. The patient reports around 2 AM this morning 11/20, she woke up to use the restroom, walked to the bathroom, and states she "just knew something was wrong". She laid back down in bed, and after about twenty minutes she developed chest pains. She locates the pain diffusely across the anterior chest without radiation, described as constant pressure, associated with shortness of breath but no diaphoresis or nausea/vomiting. She did not take anything for the pain. The chest pain failed to subside over an hour therefore she called 911. En route to the ED, EMS administered two baby aspirin and one nitroglycerin, and her chest pains subsided then resolved shortly after her arrival to the ED. The patient states she's had these chest pains a few times in the past but never this bad. She would usually take 2 aspirin, go to bed, and the pains would resolve. She denies any prior history of [place]. She had an arterial stent placed in the left leg approximately [address] Higgins. She has been taking Plavix however had some dental work done 3 weeks ago, stopped her plavix, and hasn't restarted secondary to bruising. She admits she has been under more stress lately; her and her 90-year-old have been moving this week. She reports a strong family history of heart disease with both parents. The patient has no other medical complaints including no fevers/chills, cough, palpitations , abdominal pain, or urinary complaints. Significant Findings See below Imaging Last Impressions Chest X-Ray 11/24/16 0742 Signed Impressions: Service Date/Time: Thursday, November 24, 2016 07:56 - CONCLUSION: Satisfactory central line positioning. No pneumothorax Obed Damon MD Abdomen Ultrasound 11/24/16 0000 Signed Impressions: Service Date/Time: Thursday, November 24, 2016 13:47 - CONCLUSION: 1. Trace ascites. 2. No evidence of acute abdominal process. No masses are identified. Boris Wilkerson MD Abdomen X-Ray 11/23/16 0000 Signed Impressions: Service Date/Time: Wednesday, November 23, 2016 09:14 - CONCLUSION: Benign abdomen. Jose M Nathan MD PE at Discharge GENERAL: SKIN: Cool and dry HEENT: Normocephalic. Atraumatic. Pupils equal and fixed CARDIOVASCULAR: Asystole RESPIRATORY: No breath sounds GASTROINTESTINAL: Abdomen soft, non-tender, nondistended. Normoactive bowel sounds x4. MUSCULOSKELETAL: No obvious deformities. Extremities without clubbing, cyanosis , or edema. NEUROLOGICAL: Unresponsive Transfer Summary Neuro/Psych: Acetaminophen for fever [place]/morphine for pain management CV: Cardiogenic shock Non-STEMI History of hypertension Severe TR. Pulmonary hypertension. Systolic heart failure likely acute Lactic acidosis 11/22 cardiac catheterization revealed left main patent. RCA total occlusion/ chronic with collaterals. Left circumflex 80% distal. PCI place. Complicated by dissection and placement IABP Intra-aortic balloon has been removed 11/23 -Heparin drip was discontinued. Integrilin has been discontinued Patient is currently on aspirin 81 mg daily and clopidogrel 75 mg by mouth daily /home medications. Home medications for hypertension include amlodipine 5 mill grams daily and benazepril 40 mg by mouth daily. Both feet held Serial lactates until clear. 2-D echo revealed EF 3035%. Apical hypokinesis. Severe TR. Pulmonary arterial pressures 51 mmHg. Repeat 2-D echocardiogram pending Started on David-Synephrine at 40 g per minute. Central line has been placed. Check CVP. Check flotrac once arterial access established. Resp: Acute respiratory insufficiency Follow-up on chest x-ray. Possible aspiration plus/minus pleural effusion/ volume overload Currently on nonrebreather to maintain saturations greater than equal to 92% Incentive spirometry while awake. Bronchodilators every 6 hours A cappella every 6 hours with bronchodilators GI: Nausea/vomiting Yesterday, essentially normal liver function tests/lipase/KUB. Zofran/Compazine for nausea. : Chacon catheter has been placed for accurate I's and O's in a critically ill patient. Remove when clinically indicated Endo: Hypothyroidism Currently on Levoxyl 50 g by mouth daily. TSH was 0.137 Renal: Acute kidney injury Creatinine elevated last night. Check urine electrolytes and eosinophils. Heme: Leukocytosis Anemia Likely reactive. Follow up CBC in AM. Monitor trends ID: Initiate piperacillin/tazobactam and 1 dose of vancomycin for possible pneumonia /aspiration Blood cultures 2 times sputum 1 now Monitor for signs or symptoms of infection FEN: Hypokalemia Hypocalcemia Replace per ICU electrolyte protocol if indicated. calcium chloride 1 g 1 now. MSK: PT evaluate and treat Access - Utilize peripheral IV. Central line if indicated Prophylaxis - GI - not indicated - DVT - heparin drip Critical care time 30 minutes. Patient will likely need central line and vasopressors support short-term. High likelihood of intubation. Noted later the neck on Dr. Fitzpatrick/overnight egg grader discussed with family. They decided to withdraw care and patient at 214. Hospital Course 86-year-old female with history of hypertension, hypothyroidism, PAD s/p left leg stent, presents with acute onset of chest pain just prior to arrival. She has been taking Plavix however had some dental work done 3 weeks ago, stopped her plavix, and hasn't restarted secondary to bruising. She admits she has been under more stress lately; her and her 90-year-old have been moving this week. She admits a strong family history of heart disease with both parents. She was taken emergently to cardiac catheterization lab where successful PCI to the left circumflex artery in the setting of Non-STEMI was done. Non-STEMI is complicated with left circumflex artery dissection and cardiogenic shock requiring the patient has been placed on IABP by inspector handbag frames. 11/23 - currently on 12 L simple mask. Saturations 90%. Episodes of nausea overnight. Currently afebrile. IABP removed from left side. Subjective 8/30: Currently on 13 L nonrebreather. Saturations low. Relatively hypotensive. Decreased urine output. Received 2 L normal saline bolus overnight. Pt Condition on Discharge: Deteriorating Discharge Disposition: Discharge Home Discharge Instructions DIET: Follow Instructions for: As Tolerated, No Restrictions Speech Therapy-Diet Recommends: Other Sesar Field MD Dec 16, 2016 07:12
== END 2016-11-25 02:15 | disposition expired | DRG 270 ==
LOC: NEPC 03:10 → NEDH 05:45 → HCIS 07:22 → HCVR 11-22 12:49 → HIMW 11-24 13:10
PROVIDERS: ADMIT Anesthesiology; ATTEND Anesthesiology
PROC: 02703FZ Dilation of Coronary Artery, One Artery with Three Intraluminal Devices, Percutaneous Approach (ICD-10-PCS; 2016-11-22)
PROC: 4A023N7 Measurement of Cardiac Sampling and Pressure, Left Heart, Percutaneous Approach (ICD-10-PCS; 2016-11-22)
PROC: B2111ZZ Fluoroscopy of Multiple Coronary Arteries using Low Osmolar Contrast (ICD-10-PCS; 2016-11-22)
PROC: B2151ZZ Fluoroscopy of Left Heart using Low Osmolar Contrast (ICD-10-PCS; 2016-11-22)
PROC: 5A02210 Assistance with Cardiac Output using Balloon Pump, Continuous (ICD-10-PCS; principal; 2016-11-22 08:45)
PROC: B543ZZA Ultrasonography of Right Jugular Veins, Guidance (ICD-10-PCS; 2016-11-24)
PROC: 05HM33Z Insertion of Infusion Device into Right Internal Jugular Vein, Percutaneous Approach (ICD-10-PCS; 2016-11-24)
PROC: 03HY32Z Insertion of Monitoring Device into Upper Artery, Percutaneous Approach (ICD-10-PCS; 2016-11-24)
PROC: 0BH17EZ Insertion of Endotracheal Airway into Trachea, Via Natural or Artificial Opening (ICD-10-PCS; 2016-11-24)
PROC: 5A1935Z Respiratory Ventilation, Less than 24 Consecutive Hours (ICD-10-PCS; 2016-11-24)
DX: I21.4 Non-ST elevation (NSTEMI) myocardial infarction (principal); I25.42 Coronary artery dissection; J69.0 Pneumonitis due to inhalation of food and vomit; R57.0 Cardiogenic shock; J96.01 Acute respiratory failure with hypoxia; I11.0 Hypertensive heart disease with heart failure; J96.02 Acute respiratory failure with hypercapnia; I50.21 Acute systolic (congestive) heart failure; E83.51 Hypocalcemia; I27.2 Other secondary pulmonary hypertension; E87.2 Acidosis; N17.9 Acute kidney failure, unspecified; I97.88 Other intraoperative complications of the circulatory system, not elsewhere classified; I44.7 Left bundle-branch block, unspecified; I73.9 Peripheral vascular disease, unspecified; I10 Essential (primary) hypertension; E87.6 Hypokalemia; E03.9 Hypothyroidism, unspecified; I25.10 Atherosclerotic heart disease of native coronary artery without angina pectoris; N99.89 Other postprocedural complications and disorders of genitourinary system; R33.8 Other retention of urine; I25.84 Coronary atherosclerosis due to calcified coronary lesion; D64.9 Anemia, unspecified; Z82.49 Family history of ischemic heart disease and other diseases of the circulatory system; Z87.891 Personal history of nicotine dependence; Z95.820 Peripheral vascular angioplasty status with implants and grafts
CPT/HCPCS: 31500; 33967; 36556; 36600; 71010; 74000; 76700; 76937; 80048; 80053; 80061; 80076; 81001; 82140; 82150; 82550; 82805; 83036; 83605; 83690; 83735; 84100; 84145; 84155; 84443; 84484; 85002; 85014; 85018; 85025; 85027; 85384; 85610; 85730; 87040; 87641; 92928; 93005; 93306; 93308; 93458; 94002; 94150; 94640; 94664; 94667; C1725; C1760; C1769; C1876; C1887; C1893; G0269; J0131; J0461; J0780; J1250; J1644; J1940; J2250; J2270; J2370; J2405; J2543; J3010; J3246; J3370; J7030; J7050; J7060; P9047; Q9967